=== PATIENT | male | born 1940 | race Caucasian/White ===

== ENCOUNTER 2016-09-28 18:01 | Emergency (ER) | payer MEDICARE, OTHER ==
[2016-09-28] MEDS ORDERED: Sodium Chloride 0.9% 1000 ML 1,000 ML IV SCH (18:45)
[2016-09-28] MEDS ORDERED: Hydromorphone 1 mg/ml Ampule IV ONE (18:45)
[2016-09-28 18:52] LABS: BASOPHIL % 0.2 % (0.0-0.4); Eosinophil % 0.9 % (0.00-5.0); Granulocytes % 75.3 % (36.0-66.0); Lymphocytes % 15.2 % (24.0-44.0); Mean Cell Volume 83.8 fl (78-100); Mean Corpuscular Hemoglobin 28.5 pg (26-32); Mean Platelet Volume 10.4 fl (6-9.5); Monocytes % 8.4 % (0.0-12.0); Platelet Count 316 K/mm3 (150-450); Red Cell Distribution Width 14.9 % (11.5-14.0); White Blood Count 13.8 K/mm3 (4.0-10.5)
[2016-09-28] MEDS ORDERED: Sodium Chloride 0.9% 1000 ML 1,000 ML ONE (18:52)
[2016-09-28] MEDS ORDERED: Hydromorphone 1 mg/ml Ampule ONE (18:52)
[2016-09-28 18:59] LABS: ALKALINE PHOSPHATASE 59 U/L (46-116); ANION GAP 13.7 MEQ/L (5-15); BLOOD UREA NITROGEN 16 mg/dL (9-20); CHLORIDE 102 mEq/L (98-107); Carbon Dioxide 29.8 mEq/L (21-32); Glucose 101 MG/DL (70-110); LIPASE 240 U/L (73-393); Potassium 4.3 mEq/L (3.5-5.1); SGOT/AST 36 U/L (15-37); SGPT/ALT 57 U/L (12-78); SODIUM 141 mEq/L (136-145); Total Protein 7.3 gm/dL (6.4-8.2)
--- NOTE | 2016-09-28 19:14 | ERPHSYRPT ---
- History of Present Illness Time Seen by Provider: 09/28/16 18:34 Historian: patient, family () Patient Subjective Stated Complaint: PT STATES HE BEGAN HAVING LEFT SIDE PAIN THIS AM STATES PAIN HAS ONLY GOTTEN WORSE DENIES NAUSEA PT STATES PAIN IS WORSE WHEN HE TAKES A DEEP BREATH DENIES ANY INJURY TO THE LEFT SIDE. PT DENIES ANY PROBLEMS WITH URINATION Triage Nursing Assessment: PT ALERT WARM AND DRY RESP EASY NON LABORED PAIN ON PALPATION TO LEFT SIDE NO BRUSING OR SWELLING NOTED Physician History: CC: left abd pain HX: 76 y/o patient of Dr Srivastava with gradually increased pain thru out the day. The pain is in the left side of his abdomen, worse with touch, position change, movement, riding in car. No chest pain. No injury. No rash. No shortness or breath nor cough. He had prior diverticular disease. He reports normal urination and normal BM's. No hx of similar pain in the past. He has hx of chol and HTN. Allergies/Adverse Reactions: No Known Drug Allergies Allergy (Unverified 12/15/12 06:43) Home Medications: Amlodipine Besylate 5 mg PO 09/28/16 [History] Benazepril/Hydrochlorothiazide [Benazepril-Hctz 20-12.5 mg Tab] 09/28/16 [ History] Metoprolol Succinate 09/28/16 [History] Simvastatin 20 mg PO DAILY 09/28/16 [History] Hx Tetanus, Diphtheria Vaccination/Date Given: Yes Hx Influenza Vaccination/Date Given: No Hx Pneumococcal Vaccination/Date Given: No Immunizations Up to Date: Yes - Review of Systems Constitutional: No Fever, No Chills Eyes: No Symptoms Ears, Nose, & Throat: No Symptoms Respiratory: No Cough, No Dyspnea Cardiac: No Chest Pain Abdominal/Gastrointestinal: Abdominal Pain, No Nausea, No Vomiting, No Diarrhea Genitourinary Symptoms: No Dysuria, No Hematuria, No Flank Pain Musculoskeletal: No Back Pain, No Neck Pain Skin: No Rash Neurological: No Focal Weakness, No Headache, No Parasthesia All Other Systems: Reviewed and Negative - Past Medical History Pertinent Past Medical History: Yes Neurological History: No Pertinent History ENT History: No Pertinent History Cardiac History: High Cholesterol, Hypertension Respiratory History: No Pertinent History Endocrine Medical History: No Pertinent History Musculoskeletal History: Arthritis GI Medical History: No Pertinent History History: No Pertinent History Psycho-Social History: No Pertinent History Male Reproductive Disorders: No Pertinent History Other Medical History: HTN,CHOLESTEROL - Past Surgical History Past Surgical History: No - Social History Smoking Status: Former smoker Exposure to second hand smoke: No Drug Use: none Patient Lives Alone: No ( here with ) - Nursing Vital Signs Nursing Vital Signs: Initial Vital Signs Temperature 98.0 F Temperature Source Oral Pulse Rate 52 Respiratory Rate 16 Blood Pressure [Right Arm] 140/60 Pain Intensity 2 - Physical Exam General Appearance: alert, other (pleasant man) Eye Exam: PERRL/EOMI Ears, Nose, Throat Exam: normal ENT inspection, moist mucous membranes Neck Exam: normal inspection, non-tender, supple Respiratory Exam: normal breath sounds Cardiovascular Exam: regular rate/rhythm Gastrointestinal/Abdomen Exam: soft, tenderness (left lateral upper abdomen, sensitive to touch and palpation. No rash. No mass.) Male Genitalia Exam: normal genitalia, No testicular tenderness Back Exam: normal inspection, normal range of motion Extremity Exam: normal inspection, normal range of motion Neurologic Exam: alert, oriented x 3, cooperative, sensation nml, No motor deficits Skin Exam: warm, dry, No rash SpO2 Interpretation: normal SpO2: 96 Oxygen Delivery: Room Air - Course Nursing assessment & vital signs reviewed: Yes EKG Interpreted by Me: RATE (53), Sinus Mathew, NORMAL AXIS, NORMAL INTERVALS ( QTc 411), NORMAL QRS, NORMAL ST-T - CT Exams abd/pelvis CT Interpretation: Tele-radiologist Report (Difuse scattered olonic diverticulosis w/ mild diverticulitis descending colon but no complications. fatty liver, renal cyst, enlarged prostate, fatty inguinal hernias, spondyloysis with mild listhesis) Ordered Tests: Active Orders 24 hr Category Date Time Status Clean Catch Urine Specimen STAT Care 09/28/16 18:45 Active EKG-ER Only STAT Care 09/28/16 18:45 Active IV Insertion STAT Care 09/28/16 18:45 Active ABDOMEN AND PELVIS W/0 CONTRAS [CT] Stat Exams 09/28/16 18:45 Taken CBC W DIFF Stat Lab 09/28/16 18:10 Completed CMP Stat Lab 09/28/16 18:10 Completed LIPASE Stat Lab 09/28/16 18:10 Completed UA W/RFX UR CULTURE Stat Lab 09/28/16 18:45 Ordered Medication Summary Generic Name Dose Route Start Last Admin Trade Name Db PRN Reason Stop Dose Admin Sodium Chloride 1,000 mls @ 50 mls/hr 09/28/16 18:45 09/28/16 18:53 Sodium Chloride 0.9% 1000 Ml IV 10/28/16 18:44 50 mls/hr .Q20H MIKI Administration Discontinued Medications Generic Name Dose Route Start Last Admin Trade Name Db PRN Reason Stop Dose Admin Hydromorphone HCl 1 mg 09/28/16 18:45 09/28/16 18:52 Hydromorphone 1 Mg/Ml Ampule IV 09/28/16 18:46 1 mg STAT ONE Administration Hydromorphone HCl Confirm 09/28/16 18:52 Hydromorphone 1 Mg/Ml Ampule Administered 09/28/16 18:53 Dose 1 mg .ROUTE .[employer]-MED ONE Lab/Rad Data: Laboratory Result Diagrams 09/28/16 18:10 09/28/16 18:10 Laboratory Results 09/28/16 09/28/16 Range/Units 18:10 18:10 WBC 13.8 H (4.0-10.5) K/mm3 RBC 5.20 (4.1-5.6) M/mm3 Hgb 14.8 (12.5-18.0) gm/dl Hct 43.6 (42-50) % MCV 83.8 (78-100) fl MCH 28.5 (26-32) pg MCHC 33.9 (32-36) g/dl RDW 14.9 H (11.5-14.0) % Plt Count 316 (150-450) K/mm3 MPV 10.4 H (6-9.5) fl Gran % 75.3 H (36.0-66.0) % Lymphocytes % 15.2 L (24.0-44.0) % Monocytes % 8.4 (0.0-12.0) % Eosinophils % 0.9 (0.00-5.0) % Basophils % 0.2 (0.0-0.4) % Basophils # 0.03 (0-0.4) Sodium 141 (136-145) mEq/L Potassium 4.3 (3.5-5.1) mEq/L Chloride 102 (98-107) mEq/L Carbon Dioxide 29.8 (21-32) mEq/L Anion Gap 13.7 (5-15) MEQ/L BUN 16 (9-20) mg/dL Creatinine 1.16 (0.55-1.30) mg/dl Estimated GFR > 60 ML/MIN Glucose 101 (70-110) MG/DL Calcium 9.3 (8.5-10.1) mg/dL Total Bilirubin 0.60 (0.2-1.0) mg/dL AST 36 (15-37) U/L ALT 57 (12-78) U/L Alkaline Phosphatase 59 (46-116) U/L Serum Total Protein 7.3 (6.4-8.2) gm/dL Albumin 4.0 (3.4-5.0) g/dL Lipase 240 (73-393) U/L - Progress Progress Note: 09/28/16 19:14 Likely neuropathic pain from Zoster. Will get CT to evaluate for underlying diverticular disease. This does not appear to be chest related. 09/28/16 20:04 Will treat for diverticulitis. Advised call Dr Kern for any sign of rash. He had prior allergy to sulfa so will use augmentin. Counseled pt/family regarding: lab results, diagnosis, need for follow-up, rad results - Departure Time of Disposition: 20:05 Departure Disposition: Home Clinical Impression: Left lateral abdominal pain Diverticulitis large intestine Qualifiers: Diverticulitis bleeding: without bleeding Diverticulitis complication: without perforation or abscess Qualified Code(s): K57.32 - Diverticulitis of large intestine without perforation or abscess without bleeding Condition: Stable Critical Care Time: No Referrals: SARAHI SRIVASTAVA [Primary Care Provider] - Instructions: Abdominal Pain-Adult, Diverticulitis Additional Instructions: ABDOMINAL PAIN 1. There are several different causes for abdominal pain, some of which may not be able to be identified on initial examination. 2. The important thing to remember is that bodily functions can change in a short period of time. If you notice any of the following symptoms, return to the emergency department or consult your doctor immediately: A. Worsening pain or no improvement in the next 12 hours. B. Increasing, severe abdominal pain C. Blood in stool D. Black stools E. Persistent vomiting F. Fever or chills or other symptoms Rx augmentin twice a day. Rx norco if needed for pain. Follow up with Dr Srivastava in 2 days. Return for passing blood, worsened or changed pain, fever, concerns. Prescriptions: Hydrocodone Bit/Acetaminophen [[place] 5-325 Tablet] 1 each PO Q6H PRN PRN #15 tablet PRN Reason: Pain Amox Tr/Potass Clav. 875 mg [Augmentin 875-125 Tablet] 1 each PO BID #18 tablet
[2016-09-28] MEDS ORDERED: NORCO 5/325 MG PO ONE (20:07)
[2016-09-28] MEDS ORDERED: Augmentin 875-125 Tablet PO ONE ×2 (20:07→20:08)
[2016-09-28] MEDS ORDERED: Augmentin 875-125 Tablet ONE (20:17)
[2016-09-28 20:19] LABS: ADD URINE CULTURE? YES (NO); Bacteria MODERATE /HPF (NEGATIVE); Bilirubin NEGATIVE (NEGATIVE); Blood 250 Ery/ul (0-5); COMPLETE URINE MICROSCOPIC? YES; Collection Type VOID; Epithelial Cells MODERATE /HPF (FEW); Glucose NEGATIVE (NEGATIVE); Leukocyte Esterase 1+ (NEGATIVE); Mucus MODERATE /HPF (NEGATIVE); WBC 15-25 /HPF (0-5)
[2016-09-28] MEDS ORDERED: NORCO 5/325 MG ONE (20:26)
[2016-09-28 20:31] VITALS: BP 135/58; PULSE 56; O2SAT 95
--- NOTE | 2016-09-29 09:28 | XRAY ---
Indication: Left abdominal pain. History of diverticulitis. Multiple contiguous axial images obtained through the abdomen and pelvis without contrast as ordered. Comparison: None Lung bases demonstrates minimal bibasilar atelectasis/scarring. Heart is not enlarged. Noncontrasted stomach and bowel loops appear nonobstructed. Mild diffuse scattered colonic diverticulosis. Descending colon demonstrates mild pericolonic stranding favoring diverticulitis with tiny fluid along the colic gutter. No walled off fluid collection or free air. Normal appendix. Diffuse fatty liver, calcified hepatic/splenic calcified granulomas, 2.4 cm right mid renal cyst, and enlarged prostate gland. Remaining gallbladder, pancreas, adrenal glands, kidneys, ureters, and bladder appear unremarkable for noncontrast exam. Heavy aortoiliac calcifications without AAA. Osseous structures demonstrates moderate degenerative spondylosis. Bilateral L5 spondylolysis with 6 mm spondylolisthesis. Small fatty bilateral inguinal hernias. Impression: 1. Colonic diverticulosis. Mild diverticulitis involving the descending colon. 2. Incidental fatty liver, right renal cyst, enlarged prostate gland, bilateral fatty inguinal hernias, and evidence for old granulomatous disease. 3. Bilateral L5 spondylolysis with grade 1 spondylolisthesis. CTDI 27.67
== END 2016-09-28 20:36 | disposition home or self-care (01) ==
LOC: ED 18:01
DX: K57.32 Diverticulitis of large intestine without perforation or abscess without bleeding (principal); R10.9 Unspecified abdominal pain; E78.00 Pure hypercholesterolemia, unspecified; I10 Essential (primary) hypertension; Z79.899 Other long term (current) drug therapy
CPT/HCPCS: 36000; 36415; 74176; 80053; 81000; 83690; 85025; 87077; 87086; 87186; 93005; 96360; 96361; 96374; 99284; J1170; A9270-GY

== ENCOUNTER 2016-12-28 03:19 | Emergency (ER) | payer MEDICARE, OTHER ==
[2016-12-28] MEDS ORDERED: MORPHINE SULFATE 4 MG INJ IV ONE (03:47)
--- NOTE | 2016-12-28 03:47 | ERPHSYRPT ---
- History of Present Illness Time Seen by Provider: 12/28/16 03:39 Source: patient Exam Limitations: no limitations Physician History: The patient is a 76-year-old male with family complaining that he isn't able to urinate since 6 PM yesterday. The patient had a cardiac catheterization performed yesterday. Before he left the hospital he was not able to urinate. They performed a straight catheter to relieve the urine retention. He states he put out more than 1 L of of urine. He was able to urinate a small amount afterwards without the catheter. Since being at home, he is been able to urinate only small amounts with discharge of blood clots. The patient is on Plavix. 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 His family states that one carotid artery is 100% occluded amiodarone is 98% occluded. He has no known prostate issues. His past medical history is significant for hypertension, high cholesterol, coronary artery disease, and peripheral vascular disease. He also has a history of diverticulitis. Timing/Duration: yesterday Activites at Onset: none Quality: fullness, pressure, sharpness Onset Location: suprapubic Pain Radiation: none Severity of Pain-Max: severe Severity of Pain-Current: severe Modifying Factors: Improves With: urinating Associated Symptoms: other (urinary retention) Prior abdominal problems: recent trauma (straight cath ) Sexual intercourse history: non-contributory Allergies/Adverse Reactions: No Known Drug Allergies Allergy (Unverified 12/28/16 03:59) Home Medications: Amlodipine Besylate 5 mg PO 09/28/16 [History] Benazepril/Hydrochlorothiazide [Benazepril-Hctz 20-12.5 mg Tab] 09/28/16 [ History] Metoprolol Succinate 09/28/16 [History] Simvastatin 20 mg PO DAILY 09/28/16 [History] Hx Tetanus, Diphtheria Vaccination/Date Given: Yes Hx Influenza Vaccination/Date Given: No Hx Pneumococcal Vaccination/Date Given: No - Past Medical History Pertinent Past Medical History: Yes Neurological History: No Pertinent History ENT History: No Pertinent History Cardiac History: High Cholesterol, Hypertension Respiratory History: No Pertinent History Endocrine Medical History: No Pertinent History Musculoskeletal History: Arthritis GI Medical History: No Pertinent History History: No Pertinent History Psycho-Social History: No Pertinent History Male Reproductive Disorders: No Pertinent History Other Medical History: HTN,CHOLESTEROL - Past Surgical History Past Surgical History: No - Social History Smoking Status: Former smoker Exposure to second hand smoke: No Drug Use: none Patient Lives Alone: No ( here with ) - Review of Systems Constitutional: No Fever, No Chills Eyes: No Symptoms Ears, Nose, & Throat: No Symptoms Respiratory: No Cough, No Dyspnea Cardiac: No Chest Pain, No Edema, No Syncope Abdominal/Gastrointestinal: Abdominal Pain Genitourinary Symptoms: Urinary Retention Musculoskeletal: No Back Pain, No Neck Pain Skin: No Rash Neurological: No Dizziness, No Focal Weakness, No Sensory Changes Psychological: No Symptoms Endocrine: No Symptoms Hematologic/Lymphatic: No Symptoms Immunological/Allergic: No Symptoms All Other Systems: Reviewed and Negative - Nursing Vital Signs Nursing Vital Signs: Initial Vital Signs Temperature 98.1 F 12/28/16 03:25 Pulse Rate 62 12/28/16 03:25 Respiratory Rate 18 12/28/16 03:25 Blood Pressure 182/62 12/28/16 03:25 O2 Sat by Pulse Oximetry 96 12/28/16 03:25 Pain Scale Pain Intensity 0 - Physical Exam General Appearance: severe distress (during bladder spasm.) Eye Exam: PERRL/EOMI Ears, Nose, Throat Exam: pharynx normal, moist mucous membranes Neck Exam: normal inspection, supple Respiratory Exam: normal breath sounds Cardiovascular Exam: regular rate/rhythm (I much is out now), No edema Gastrointestinal/Abdomen Exam: tenderness, distention, other (bladder can be palpated in lower abd.) Rectal Exam: not done Male Genital Exam: normal genitalia Back Exam: normal inspection, No CVA tenderness Extremity Exam: normal inspection, normal range of motion, No pedal edema Neurologic Exam: alert, oriented x 3, cooperative, sensation nml, No motor deficits Skin Exam: normal color, warm, dry, No rash SpO2 Interpretation: normal Ordered Tests: Active Orders 24 hr Category Date Time Status Catheter-[place] STAT Care 12/28/16 03:51 Active IV Insertion STAT Care 12/28/16 03:51 Active UA W/ MICROSCOPIC Stat Lab 12/28/16 04:00 Completed Medication Summary Discontinued Medications Generic Name Dose Route Start Last Admin Trade Name Freq PRN Reason Stop Dose Admin Morphine Sulfate 4 mg 12/28/16 03:47 12/28/16 03:55 Morphine Sulfate 4 Mg Inj IV 12/28/16 03:48 4 mg STAT ONE Administration Morphine Sulfate Confirm 12/28/16 03:54 Morphine Sulfate 4 Mg Inj Administered 12/28/16 03:55 Dose 4 mg .ROUTE .[employer]-MED ONE Ondansetron HCl 4 mg 12/28/16 03:48 12/28/16 03:56 Zofran 4 Mg/2 Ml Vial IV 12/28/16 03:49 4 mg STAT ONE Administration Ondansetron HCl Confirm 12/28/16 03:53 Zofran 4 Mg/2 Ml Vial Administered 12/28/16 03:54 Dose 4 mg .ROUTE .STK-MED ONE Tamsulosin HCl 0.4 mg 12/28/16 03:48 12/28/16 03:56 Flomax 0.4 Mg PO 12/28/16 03:49 0.4 mg DAILY STA Administration Tamsulosin HCl Confirm 12/28/16 03:53 Flomax 0.4 Mg Administered 12/28/16 03:54 Dose 0.4 mg .ROUTE .STK-MED ONE Lab/Rad Data: Laboratory Results 12/28/16 Range/Units 04:00 Ur Collection Type CLEAN CATCH Urine Color RED (YELLOW) Urine Appearance SLIGHTLY CLOUDY (CLEAR) Urine pH 7.0 (5-6) Ur Specific [place] 1.010 (1.005-1.025) Urine Protein 100 (Negative) Urine Ketones NEGATIVE (NEGATIVE) Urine Blood 250 (0-5) Dereck/ul Urine Nitrite NEGATIVE (NEGATIVE) Urine Bilirubin NEGATIVE (NEGATIVE) Urine Urobilinogen NORMAL (0-1) mg/dL Ur Leukocyte Esterase NEGATIVE (NEGATIVE) Urine Microscopic RBC >100 (0-2) /HPF Ur Epithelial Cells FEW (FEW) /HPF Urine Bacteria RARE (NEGATIVE) /HPF Urine Culture Reflexed NO (NO) Urine Glucose NEGATIVE (NEGATIVE) mg/dL Specimen Received 12/28/16:0400 - Progress Progress: improved Progress Note: 12/28/16 03:59 A [place] catheter was placed but it was quickly occluded with small blood clots. Some mild irrigation of the [place] catheter produced good results. The patient is feeling much better now. Counseled pt/family regarding: lab results, diagnosis, need for follow-up - Departure Time of Disposition: 04:00 Departure Disposition: Home Clinical Impression: Urinary retention Condition: Stable Critical Care Time: No Referrals: SARAHI DREW [Primary Care Provider] - Additional Instructions: You have urinary retention. A [place] catheter was placed in the ER and had to be irrigated to relieve the clots that were obstructing the catheter. Leave the catheter in place until Friday. You were given morphine 4 mg and zofran 4 mg by IV and flomax 0.4 mg by mouth in the ER. Follow-up with his family doctor to have the [place] catheter removed on Friday.
[2016-12-28] MEDS ORDERED: Zofran 4 MG/2 ML VIAL IV ONE (03:48)
[2016-12-28] MEDS ORDERED: Flomax 0.4 MG PO STA (03:48)
[2016-12-28] MEDS ORDERED: Zofran 4 MG/2 ML VIAL ONE (03:53)
[2016-12-28] MEDS ORDERED: Flomax 0.4 MG ONE (03:53)
[2016-12-28] MEDS ORDERED: MORPHINE SULFATE 4 MG INJ ONE (03:54)
[2016-12-28 04:14] VITALS: PULSE 56; O2SAT 97
[2016-12-28 04:19] LABS: ADD URINE CULTURE? NO (NO); Bilirubin NEGATIVE (NEGATIVE); Blood 250 Ery/ul (0-5); COMPLETE URINE MICROSCOPIC? YES; Collection Type CLEAN CATCH; Glucose NEGATIVE (NEGATIVE); Leukocyte Esterase NEGATIVE (NEGATIVE)
[2016-12-28 04:20] LABS: Bacteria RARE /HPF (NEGATIVE); Epithelial Cells FEW /HPF (FEW)
[2016-12-28 04:59] VITALS: BP 152/69
== END 2016-12-28 05:02 | disposition home or self-care (01) ==
LOC: ED 03:19
DX: R33.9 Retention of urine, unspecified (principal); I10 Essential (primary) hypertension; E78.00 Pure hypercholesterolemia, unspecified; I25.10 Atherosclerotic heart disease of native coronary artery without angina pectoris; I73.9 Peripheral vascular disease, unspecified; Z79.899 Other long term (current) drug therapy
CPT/HCPCS: 36000; 51702; 81000; 96374; 96375; 99283; 99284; J2270; J2405; A9270-GY

== ENCOUNTER 2021-07-18 21:18 | Observation (INO) | payer MEDICARE ==
[2021-07-18 22:08] LABS: Absolute Neutrophil Ct (ANC) 7.77 (1.4-6.9); Basophil (Absolute #) 0.05 (0-0.4); Eosinophil % 3.2 % (0.00-5.0); Eosinophil (Absolute #) 0.32 (0-0.5); Hematocrit 36.5 % (42-50); Hemoglobin 11.9 gm/dl (12.5-18.0); Lymphocyte (Absolute #) 1.15 (1.0-4.6); Lymphocytes % 11.6 % (24.0-44.0); Mean Cell Volume 88.6 fl (78-100); Mean Corpuscular Hemoglobin 28.9 pg (26-32); Mean Corpuscular Hgb Concent. 32.6 g/dl (32-36); Mean Platelet Volume 9.4 fl (7.5-11.0); Monocyte (Absolute #) 0.64 (0.0-1.3); Monocytes % 6.4 % (0.0-12.0); Neutrophil % 78.3 % (36.0-66.0); Platelet Count 381 K/mm3 (150-450); Red Blood Count 4.12 M/mm3 (4.1-5.6); Red Cell Distribution Width 15.9 % (11.5-14.0); White Blood Count 9.9 K/mm3 (4.0-10.5)
--- NOTE | 2021-07-18 22:12 | ERPHSYRPT ---
- History of Present Illness Historian: patient, other (Daughter) Exam Limitations: no limitations Patient Subjective Stated Complaint: Pt states, "Every time I try and eat it feels like it gets stuff in my chest. I keep having to spit it up." Triage Nursing Assessment: Pt alert and oriented x3, pt ambulatory to cot by self, pt c/o food "stuck in chest after every time he eats." pt denies stomach pain, fever, or diarrhea. pt states "I have to spit up the food I eat cause it feels like it never makes it down to my stomach." Physician History: 80 yo wm w food bolus stuck in esophagus since eating steak/eggs at 10:00AM today. Pt unable to hold down solids/liquids. Daughter states that pt has been having dysphagia for several months. He denies chest pain/dyspnea/diarrhea/fever/melena/hematochezia. Timing/Duration: today (10:00AM) Activities at Onset: other (Breakfast) Quality: fullness Abdominal Pain Onset Location: other (No abdominal pain) Modifying Factors: Improves With: eating Associated Symptoms: loss of appetite, nausea, No back, No chest pain, No diaphoresis, No diarrhea, No fever/chills, No fatigue, No headache, No heartburn, No neck pain, No rash, No shortness of breath, No syncope, No vomiting, No weakness Previous symptoms: same symptoms as today Allergies/Adverse Reactions: Penicillins Allergy (Verified 07/18/21 21:29) Home Medications: Amlodipine Besylate 5 mg PO DAILY 09/28/16 [History] Simvastatin 40 mg PO HS 09/28/16 [History] Aspirin 81 tab PO HS 12/28/16 [History] Clopidogrel Bisulfate 75 mg [PLAVIX 75 MG Tablet] 1 tab DAILY 12/28/16 [History] Levothyroxine Sodium 75 Mcg [Synthroid 75 Mcg] 75 mcg PO DAILY 07/18/21 [History] Potassium Chloride 30 meq PO DAILY 07/18/21 [History] Allopurinol 100 mg [Zyloprim 100 mg] 100 mg PO BID 07/19/21 [History] Ibuprofen 200 mg [Motrin 200 mg] 400 mg PO BID 07/19/21 [History] Metoprolol Tartrate 50 mg [Lopressor 50 MG] 50 mg PO BID 07/19/21 [History] Tamsulosin HCl 0.4 mg [Flomax 0.4 MG] 0.4 mg PO BID 07/19/21 [History] Hx Tetanus, Diphtheria Vaccination/Date Given: Yes Hx Influenza Vaccination/Date Given: No Hx Pneumococcal Vaccination/Date Given: No Immunizations Up to Date: Yes Travel Risk - International Travel Have you traveled outside of the country in past 3 weeks: No - Coronavirus Screening Are you exhibiting any of the following symptoms?: No Close contact with a COVID-19 positive Pt in past 14-21 Days: No - Vaccine Status Have you recieved a Covid-19 vaccination: Yes 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: [employer] - Review of Systems Constitutional: No Symptoms Eyes: No Symptoms Ears, Nose, & Throat: No Symptoms, Throat Pain Respiratory: No Symptoms Cardiac: No Symptoms Abdominal/Gastrointestinal: No Symptoms Genitourinary Symptoms: No Symptoms Musculoskeletal: No Symptoms Skin: No Symptoms Neurological: No Symptoms Psychological: No Symptoms Endocrine: No Symptoms Hematologic/Lymphatic: No Symptoms Immunological/Allergic: No Symptoms - Past Medical History Pertinent Past Medical History: Yes Neurological History: No Pertinent History ENT History: No Pertinent History Cardiac History: High Cholesterol, Hypertension Respiratory History: No Pertinent History Endocrine Medical History: No Pertinent History Musculoskeletal History: Arthritis GI Medical History: No Pertinent History History: No Pertinent History, Bladder Cancer Psycho-Social History: No Pertinent History Male Reproductive Disorders: No Pertinent History Other Medical History: HTN,CHOLESTEROL - Past Surgical History Past Surgical History: Yes Other Surgical History: carotid artery - Social History Smoking Status: Former smoker Exposure to second hand smoke: No Drug Use: none Patient Lives Alone: No ( here with ) Significant Family History: no pertinent family hx - Nursing Vital Signs Nursing Vital Signs: Initial Vital Signs Temperature 97.2 F 07/18/21 21:31 Pulse Rate 74 07/18/21 21:31 Respiratory Rate 16 07/18/21 21:31 Blood Pressure 162/46 07/18/21 21:31 O2 Sat by Pulse Oximetry 99 07/18/21 21:31 Pain Scale Pain Intensity 0 Hypertensive - Physical Exam General Appearance: no apparent distress Eye Exam: PERRL/EOMI, eyes nml inspection Ears, Nose, Throat Exam: normal ENT inspection, TMs normal Neck Exam: normal inspection, non-tender, supple, full range of motion Respiratory Exam: normal breath sounds, lungs clear, airway intact Cardiovascular Exam: regular rate/rhythm, normal heart sounds, normal peripheral pulses, No murmur Gastrointestinal/Abdomen Exam: soft, normal bowel sounds Back Exam: normal inspection, normal range of motion Extremity Exam: normal inspection, normal range of motion Neurologic Exam: alert, oriented x 3, cooperative, circulation librarian II-XII nml as tested, normal mood/affect, nml cerebellar function, nml station & gait, sensation nml Skin Exam: normal color, warm, dry Lymphatic Exam: No inguinal node tender (L) SpO2 Interpretation: normal SpO2: 99 O2 Delivery: Room Air - Course Nursing assessment & vital signs reviewed: Yes EKG Interpreted by Me: RATE (NSR/R66/Normal QT-QTc/No acute ST segment changes) Ordered Tests: Active Orders 24 hr Category Date Time Status EKG-ER Only STAT Care 07/18/21 22:03 Completed CBC W DIFF Stat Lab 07/18/21 21:50 Completed CMP Stat Lab 07/18/21 21:50 Completed PROTIME WITH INR Stat Lab 07/18/21 22:14 Completed PTT Stat Lab 07/18/21 22:14 Completed TROPONIN Q3H Lab 07/18/21 21:50 Completed Medication Summary Generic Name Dose Route Start Last Admin Trade Name Freq PRN Reason Stop Dose Admin Allopurinol 100 mg 07/19/21 01:30 07/19/21 01:22 Allopurinol 100 Mg Tablet PO 08/18/21 01:29 100 mg BID MIKI Administration Lactated Ringer's 1,000 mls @ 80 mls/hr 07/18/21 23:00 07/18/21 22:42 Lactated Ringers IV 08/17/21 22:59 80 mls/hr .[id number] MIKI Administration Dextrose/Lactated Ringer's 1,000 mls @ 75 mls/hr 07/19/21 00:30 07/19/21 01:29 Dextrose 5%-Lr Iv Solution 1000 Ml IV 08/18/21 00:29 75 mls/hr .[id number] MIKI Administration Metoprolol Tartrate 50 mg 07/19/21 10:00 07/19/21 01:27 Metoprolol Tartrate 50 Mg Tablet PO 08/18/21 09:59 50 mg BID MIKI Administration Ondansetron HCl 4 mg 07/19/21 00:01 Ondansetron Hcl 4 Mg/2 Ml Vial IV 08/18/21 00:00 Q6H PRN PRN NAUSEA/VOMITING Simvastatin 40 mg 07/19/21 01:30 07/19/21 01:22 Simvastatin 20 Mg Tablet PO 08/18/21 01:29 40 mg HS MIKI Administration Tamsulosin HCl 0.4 mg 07/19/21 01:30 07/19/21 01:48 Tamsulosin Hcl 0.4 Mg Cap PO 08/18/21 01:29 0.4 mg BID MIKI Administration Discontinued Medications Generic Name Dose Route Start Last Admin Trade Name Freq PRN Reason Stop Dose Admin Lactated Ringer's Confirm 07/18/21 22:40 Lactated Ringers Administered 07/18/21 22:41 Dose 1,000 mls @ ud IV .STK-MED ONE Lidocaine HCl Confirm 07/18/21 23:08 Lidocaine - Mpf 2% 5 Ml Vial Administered 07/18/21 23:09 Dose 5 ml .ROUTE .STK-MED ONE Metoprolol Succinate 50 mg 07/19/21 01:30 Metoprolol Succinate 50 Mg Tablet.Sa PO 08/18/21 01:29 BID MIKI Propofol Confirm 07/18/21 23:09 Propofol 10 Mg/Ml 20ml Vial Administered 07/18/21 23:10 Dose 200 mg IV .STK-MED ONE Lab/Rad Data: Laboratory Result Diagrams 07/18/21 21:50 07/18/21 21:50 Laboratory Results 07/18/21 07/18/21 07/18/21 Range/Units 22:30 22:14 21:50 WBC (4.0-10.5) K/mm3 RBC (4.1-5.6) M/mm3 Hgb (12.5-18.0) gm/dl Hct (42-50) % MCV (78-100) fl MCH (26-32) pg MCHC (32-36) g/dl RDW (11.5-14.0) % Plt Count (150-450) K/mm3 MPV (7.5-11.0) fl Gran % (36.0-66.0) % Eos # (Auto) (0-0.5) Absolute Lymphs (auto) (1.0-4.6) Absolute Monos (auto) (0.0-1.3) Lymphocytes % (24.0-44.0) % Monocytes % (0.0-12.0) % Eosinophils % (0.00-5.0) % Basophils % (0.0-0.4) % Absolute Granulocytes (1.4-6.9) Basophils # (0-0.4) PT 13.6 H (9.4-12.5) SECONDS INR 1.15 (0.8-3.0) APTT 43.4 H (25.1-36.5) SECONDS Sodium (137-145) mmol/L Potassium (3.5-5.1) mmol/L Chloride (98-107) mmol/L Carbon Dioxide (22-30) mmol/L Anion Gap (5-15) MEQ/L BUN (9-20) mg/dL Creatinine (0.66-1.25) mg/dL Estimated GFR ML/MIN Glucose (74-106) mg/dL Calcium (8.4-10.2) mg/dL Total Bilirubin (0.2-1.3) mg/dL AST (17-59) U/L ALT (0-50) U/L Alkaline Phosphatase (38-126) U/L Troponin I < 0.012 (0.000-0.034) ng/mL Serum Total Protein (6.3-8.2) g/dL Albumin (3.5-5.0) g/dL Influenza Type A Ag NEGATIVE (NEGATIVE) Influenza Type B Ag NEGATIVE (NEGATIVE) RSV (PCR) NEGATIVE (Negative) SARS-CoV-2 (PCR) NEGATIVE (NEGATIVE) 07/18/21 07/18/21 Range/Units 21:50 21:50 WBC 9.9 (4.0-10.5) K/mm3 RBC 4.12 (4.1-5.6) M/mm3 Hgb 11.9 L (12.5-18.0) gm/dl Hct 36.5 L (42-50) % MCV 88.6 (78-100) fl MCH 28.9 (26-32) pg MCHC 32.6 (32-36) g/dl RDW 15.9 H (11.5-14.0) % Plt Count 381 (150-450) K/mm3 MPV 9.4 (7.5-11.0) fl Gran % 78.3 H (36.0-66.0) % Eos # (Auto) 0.32 (0-0.5) Absolute Lymphs (auto) 1.15 (1.0-4.6) Absolute Monos (auto) 0.64 (0.0-1.3) Lymphocytes % 11.6 L (24.0-44.0) % Monocytes % 6.4 (0.0-12.0) % Eosinophils % 3.2 (0.00-5.0) % Basophils % 0.5 (0.0-0.4) % Absolute Granulocytes 7.77 H (1.4-6.9) Basophils # 0.05 (0-0.4) PT (9.4-12.5) SECONDS INR (0.8-3.0) APTT (25.1-36.5) SECONDS Sodium 144 (137-145) mmol/L Potassium 3.9 (3.5-5.1) mmol/L Chloride 115 H (98-107) mmol/L Carbon Dioxide 14 L* (22-30) mmol/L Anion Gap 18.9 H (5-15) MEQ/L BUN 33 H (9-20) mg/dL Creatinine 2.11 H (0.66-1.25) mg/dL Estimated GFR 32.3 ML/MIN Glucose 99 (74-106) mg/dL Calcium 9.3 (8.4-10.2) mg/dL Total Bilirubin 0.50 (0.2-1.3) mg/dL AST 22 (17-59) U/L ALT 17 (0-50) U/L Alkaline Phosphatase 107 (38-126) U/L Troponin I (0.000-0.034) ng/mL Serum Total Protein 7.7 (6.3-8.2) g/dL Albumin 4.2 (3.5-5.0) g/dL Influenza Type A Ag (NEGATIVE) Influenza Type B Ag (NEGATIVE) RSV (PCR) (Negative) SARS-CoV-2 (PCR) (NEGATIVE) - Progress Progress Note: 07/18/21 22:15 Pt unable to swallow water-spits it all up Talked to Dr. Kim, will do EGD tonight 07/19/21 00:54 Pt taken to surgery for EGD 07/19/21 00:55 LR started in ER at 80ml/hr Counseled pt/family regarding: diagnosis, need for follow-up - Departure Departure Disposition: Release to OR/SDC Clinical Impression: Esophageal obstruction due to food impaction, Renal insufficiency Condition: Stable Critical Care Time: No
[2021-07-18 22:15] LABS: ALBUMIN 4.2 g/dL (3.5-5.0); ANION GAP 18.9 MEQ/L (5-15); BILIRUBIN,TOTAL 0.5 mg/dL (0.2-1.3); Calcium 9.3 mg/dL (8.4-10.2); Creatinine 1 2.11 mg/dL (0.66-1.25); EST GLOMERULAR FILTRATION RATE 32.3 ML/MIN; Potassium 3.9 mmol/L (3.5-5.1); Total Protein 7.7 g/dL (6.3-8.2)
[2021-07-18 22:28] LABS: INR 1.15 (0.8-3.0); PROTIME 13.6 SECONDS (9.4-12.5)
[2021-07-18 22:30] LABS: PTT 43.4 SECONDS (25.1-36.5)
[2021-07-18] MEDS ORDERED: Lactated Ringers 1,000 ML IV ONE (22:40)
[2021-07-18] MEDS ORDERED: Lactated Ringers 1,000 ML IV SCH (23:00)
[2021-07-18] MEDS ORDERED: Xylocaine-Mpf 2% 5 Ml Vial ONE (23:08)
[2021-07-18] MEDS ORDERED: DIPRIVAN 200 MG/20 ML IV ONE (23:09)
[2021-07-18 23:17] LABS: INFLUENZA A NEGATIVE (NEGATIVE); INFLUENZA B NEGATIVE (NEGATIVE); RESPIRATORY SYNCTIAL VIRUS NEGATIVE (Negative); SARS-CoV-2 Xpert Express NEGATIVE (NEGATIVE)
[2021-07-19] MEDS ORDERED: Zofran 4 MG/2 ML VIAL IVIM PRN (00:01)
[2021-07-19] MEDS ORDERED: Dextrose 5%-Lr IV Solution 1000 ML 1,000 ML IV SCH (00:30)
[2021-07-19] MEDS ORDERED: ZOCOR 20MG ONE (01:18)
[2021-07-19] MEDS ORDERED: Lopressor 50 MG ONE (01:18)
[2021-07-19] MEDS ORDERED: ZYLOPRIM 100 MG ONE (01:18)
[2021-07-19] MEDS ORDERED: Flomax 0.4 MG ONE (01:18)
[2021-07-19] MEDS ORDERED: Dextrose 5%-Lr IV Solution 1000 ML 1,000 ML IV ONE (01:19)
[2021-07-19] MEDS: ZYLOPRIM 100 MG PO SCH ×2 (01:22→09:45)
[2021-07-19] MEDS: Lopressor 50 MG PO SCH ×2 (01:27→09:45)
[2021-07-19] MEDS ORDERED: ZOCOR 20MG PO SCH (01:30)
[2021-07-19] MEDS ORDERED: Toprol Xl 50 MG PO SCH (01:30)
[2021-07-19] MEDS: Flomax 0.4 MG PO SCH ×2 (01:48→09:44)
[2021-07-19 05:10] LABS: Absolute Neutrophil Ct (ANC) 6.46 (1.4-6.9); Basophil (Absolute #) 0.03 (0-0.4); Eosinophil % 3.2 % (0.00-5.0); Eosinophil (Absolute #) 0.27 (0-0.5); Hematocrit 33.9 % (42-50); Lymphocyte (Absolute #) 1.07 (1.0-4.6); Lymphocytes % 12.8 % (24.0-44.0); Mean Cell Volume 89.2 fl (78-100); Mean Corpuscular Hemoglobin 28.9 pg (26-32); Mean Corpuscular Hgb Concent. 32.4 g/dl (32-36); Mean Platelet Volume 9.3 fl (7.5-11.0); Monocyte (Absolute #) 0.52 (0.0-1.3); Monocytes % 6.2 % (0.0-12.0); Neutrophil % 77.4 % (36.0-66.0); Platelet Count 341 K/mm3 (150-450); White Blood Count 8.4 K/mm3 (4.0-10.5)
[2021-07-19] MEDS ORDERED: TYLENOL 325 MG PO PRN (07:13)
[2021-07-19] MEDS ORDERED: FEVERALL 650 MG RC PRN (07:13)
[2021-07-19 07:56] VITALS: O2SAT 95
--- NOTE | 2021-07-19 08:53 | HP ---
ADMISSION DATE: 07/18/2021 ADMITTING DIAGNOSIS: 1. FOOD BOLUS IN THE ESOPHAGUS. HISTORY OF PRESENT ILLNESS: The patient is an 80 y/o patient of Dr. Srivastava who came to the Emergency Room complaining of having a food bolus stuck in the esophagus. Has been having difficulty swallowing and he was referred for surgical management. PAST MEDICAL HISTORY: His past medical history overall seems to be unremarkable. The patient has some coronary artery disease. He is on aspirin and Plavix. Denies diabetes. PAST SURGICAL HISTORY: Seems to be overall unremarkable. Never had an upper endoscopy, but he has experienced dysphagia for the last few months. PHYSICAL EXAMINATION: On exam, is alert and oriented. HEENT: Pupils are equal and normoactive. NECK: Supple. COR: Regular rhythm. ABDOMEN: Soft and nontender. EXTREMITIES: Within normal limits and no pedal edema. IMPRESSION: 1. A FOOD BOLUS IS STUCK IN THE ESOPHAGUS. PLAN: The plan is to proceed with an upper endoscopy and removal of the food bolus, possible dilatation.
--- NOTE | 2021-07-19 09:45 | OP ---
SURGERY DATE: 07/18/2021 SURGERY TIME: 2311 PREOPERATIVE DIAGNOSIS: 1. FOOD BOLUS IN THE ESOPHAGUS. POSTOPERATIVE DIAGNOSIS: 1. FOOD BOLUS IN THE ESOPHAGUS. PROCEDURE: 1. EGD with removal of the food bolus and biopsy and dilatation. SURGEON: Magan Kim M.D. ANESTHESIA: MAC. COMPLICATIONS: None. INDICATIONS: The patient came to the Emergency Room complaining of having difficulty swallowing, even his own saliva. He has been vomiting. He tried some water. The water came back up. So, he was referred for removal of the food bolus which was done without complications. DESCRIPTION OF PROCEDURE: The patient was taken to the endoscopy lab. Was given MAC anesthesia. The scope was introduced and advanced in the lower esophagus. Some food bolus residual was present. We were able to push it through with the scope without requiring any basket or tripod to removal that impacted bolus. After this was done, we noticed a stricture in the distal esophagus which allowed the passage of the scope, but seemed to be somehow snug at that level. Did not look like a malignancy, but a benign type of stricture. The scope was advanced into the stomach and then negotiated through the pyloric channel to the 1st and 2nd portion of the duodenum. Did not identify any ulcers. Biopsies were taken for H-pylori and then biopsy was also taken from the distal esophagus to rule out malignancy. Then, using an 18/20 balloon dilator, we dilated the distal esophagus up to 60 [place]ian of 20 mm. There was some oozing from the dilated area, but we felt that it was minimal. At this point, we withdrew the scope and the procedure was ended without complications. The patient tolerated this procedure well. Was taken back to the recovery area in overall stable condition.
[2021-07-19] MEDS ORDERED: NORVASC 5 MG PO SCH (10:00)
[2021-07-19] MEDS ORDERED: Klor Con 10 MEQ PO SCH (10:00)
[2021-07-19] MEDS ORDERED: PLAVIX 75 MG Tablet PO SCH (10:00)
[2021-07-19] MEDS ORDERED: MOTRIN 400 MG PO SCH (10:00)
[2021-07-19] MEDS ORDERED: NON-FORMULARY ITEM (Potassium Chloride [Potassium Chloride] 10 MEQ Tab.Er.Prt) PO SCH ×2 (10:00)
[2021-07-19] MEDS ORDERED: SYNTHROID 75 MCG PO SCH (10:00)
[2021-07-19 11:32] VITALS: BP 154/67; PULSE 51
[2021-07-19] MEDS ORDERED: ECOTRIN 81 MG PO SCH (22:00)
== END 2021-07-19 11:20 | disposition home or self-care (01) ==
LOC: ED 21:18 → MED SURG 23:45
PROVIDERS: ADMIT Surgery; ATTEND Surgery
DX: T18.128A Food in esophagus causing other injury, initial encounter (principal); I25.10 Atherosclerotic heart disease of native coronary artery without angina pectoris; I10 Essential (primary) hypertension; E78.00 Pure hypercholesterolemia, unspecified; Z79.01 Long term (current) use of anticoagulants; Z79.899 Other long term (current) drug therapy; Z20.828 Contact with and (suspected) exposure to other viral communicable diseases
CPT/HCPCS: 0241U; 36415; 43239; 43247; 43249; 80053; 84484; 85025; 85610; 85730; 93005; 96374; 99284; G0378; 99100; 99140; C1726; J1642; J2704; A9270-GY

== ENCOUNTER 2022-03-26 11:53 | Inpatient (IN) | payer MEDICARE ==
--- NOTE | 2022-03-26 11:56 | ERPHSYRPT ---
- History of Present Illness Time Seen by Provider: 03/26/22 12:05 Source: patient, family, old records Exam Limitations: clinical condition Physician History: This is an 81-year-old white male patient of Dr. Srivastava who is a former smoker and has a history of hyperlipidemia, hypertension, hypothyroidism, gout and is on Plavix and presents with a 30-day history of intermittent shortness of breath. However, in the last 4 days his symptoms have worsened. Approximately 30 days ago he was diagnosed with a "flu". Patient was hypoxic on arrival to the emergency department the room air oxygen saturation level 88%. Patient also complains of cough. He denies chest pain. He denies abdominal pain. He has had no nausea vomiting or diarrhea. Additional history obtained from patient's family/daughter and old records from [facility]. Timing/Duration: day(s) (Symptoms worsening over the last 4 days), worse, other (Symptoms present for 30 days) Activities at Onset: activity Severity of Dyspnea-Max: moderate Severity of Dyspnea-Current: moderate Possible Cause: no prior episodes Modifying Factors: Improves With: coughing, oxygen (Improved) Associated Symptoms: cough, No chest pain/discomfort Allergies/Adverse Reactions: shrimp Allergy (Verified 03/26/22 12:03) Sulfa (Sulfonamide Antibiotics) Allergy (Verified 03/26/22 12:03) Home Medications: Amlodipine Besylate 5 mg PO DAILY 09/28/16 [History] Simvastatin 40 mg PO HS 09/28/16 [History] Aspirin 81 tab PO HS 12/28/16 [History] Clopidogrel Bisulfate [PLAVIX Tablet] 1 tab DAILY 12/28/16 [History] Levothyroxine Sodium 75 Mcg [Synthroid 75 Mcg] 75 mcg PO DAILY 07/18/21 [History] Potassium Chloride 30 meq PO DAILY 07/18/21 [History] Allopurinol 100 mg [Zyloprim 100 mg] 100 mg PO BID 07/19/21 [History] Ibuprofen 200 mg [Motrin 200 mg] 400 mg PO BID 07/19/21 [History] Metoprolol Tartrate 50 mg [Lopressor 50 MG] 50 mg PO BID 07/19/21 [History] Tamsulosin HCl 0.4 mg [Flomax 0.4 MG] 0.4 mg PO BID 07/19/21 [History] Hx Tetanus, Diphtheria Vaccination/Date Given: Yes Hx Influenza Vaccination/Date Given: No Hx Pneumococcal Vaccination/Date Given: No Travel Risk - International Travel Have you traveled outside of the country in past 3 weeks: No - Coronavirus Screening Are you exhibiting any of the following symptoms?: Yes Symptoms: Cough: New Onset, Shortness of Breath Close contact with a COVID-19 positive Pt in past 14-21 Days: No - Vaccine Status Have you recieved a Covid-19 vaccination: Yes Crystal Lapper: Monitor - Vaccination Dates Date of 2cond Vaccination (if applicable): 2020 - Review of Systems Constitutional: Weakness Eyes: No Symptoms Ears, Nose, & Throat: No Symptoms Respiratory: Cough, Dyspnea Cardiac: No Symptoms Abdominal/Gastrointestinal: No Symptoms Genitourinary Symptoms: No Symptoms Musculoskeletal: No Symptoms Skin: No Symptoms Neurological: No Symptoms Psychological: No Symptoms Endocrine: No Symptoms Hematologic/Lymphatic: No Symptoms Immunological/Allergic: No Symptoms All Other Systems: Reviewed and Negative - Past Medical History Pertinent Past Medical History: Yes Neurological History: No Pertinent History ENT History: No Pertinent History Cardiac History: High Cholesterol, Hypertension Respiratory History: No Pertinent History Endocrine Medical History: No Pertinent History Musculoskeletal History: Arthritis GI Medical History: No Pertinent History History: No Pertinent History, Bladder Cancer Psycho-Social History: No Pertinent History Male Reproductive Disorders: No Pertinent History Other Medical History: HTN,CHOLESTEROL - Past Surgical History Past Surgical History: Yes Other Surgical History: carotid artery - Social History Smoking Status: Former smoker Exposure to second hand smoke: No Drug Use: none Patient Lives Alone: No ( here with ) Significant Family History: no pertinent family hx - Nursing Vital Signs Nursing Vital Signs: Initial Vital Signs Temperature 98.3 F 03/26/22 12:01 Pulse Rate 103 H 03/26/22 12:01 Respiratory Rate 30 H 03/26/22 12:01 Blood Pressure 171/58 03/26/22 12:01 O2 Sat by Pulse Oximetry 94 L 03/26/22 12:01 Pain Scale Pain Intensity 0 - Physical Exam General Appearance: mild distress, alert, anxiety Eye Exam: PERRL/EOMI, eyes nml inspection Ears, Nose, Throat Exam: hearing decreased (Patient is chronically hard of hearing) Neck Exam: normal inspection, non-tender, supple, full range of motion Respiratory Exam: respiratory distress (Mild), airway intact, diminished breath sounds (Bilateral bases), No chest tenderness, No accessory muscle use Cardiovascular/Chest Exam: normal heart sounds, regular rate/rhythm Abdominal/Gastrointestinal Exam: soft, normal bowel sounds, No tenderness Rectal Exam: not done Extremity Exam: non-tender, normal range of motion, pedal edema (Mild feet and ankle edema to palpation) Neurologic Exam: alert, oriented x 3, cooperative, educational resource coordinator II-XII nml as tested, normal mood/affect, sensation nml Skin Exam: normal color, warm, dry Lymphatic Exam: No adenopathy SpO2 Interpretation: hypoxic (On arrival 88% was there is room air oxygenation level. After placement of 2 L nasal cannula oxygen his oxygenation level increased to 94%) - Course Nursing assessment & vital signs reviewed: Yes EKG Interpreted by Me: RATE (105), Sinus Tach, Left Leon Deviation, NORMAL QRS, Non-specific ST Changes, Other (No acute ischemic changes on today's twelve-lead EKG. This was read by me.) Ordered Tests: Active Orders 24 hr Category Date Time Status Air Hammer Stripper STAT Care 03/26/22 12:17 Active EKG-ER Only STAT Care 03/26/22 12:16 Active IV Insertion STAT Care 03/26/22 12:16 Active Pulse Oximetry (ED) STAT Care 03/26/22 12:16 Active CHEST 1 VIEW (PORTABLE) Stat Exams 03/26/22 12:17 Completed BLOOD CULTURE Stat Lab 03/26/22 12:44 Received CBC W DIFF Stat Lab 03/26/22 12:28 Completed CMP Stat Lab 03/26/22 12:28 Completed Lactic Acid Stat Lab 03/26/22 12:30 Completed Lactic Acid Stat Lab 03/26/22 14:39 Received MAGNESIUM Stat Lab 03/26/22 12:28 Completed NT PRO BNP Stat Lab 03/26/22 12:28 Completed TROPONIN Q4H Lab 03/26/22 12:28 Completed TROPONIN Q4H Lab 03/26/22 16:30 Ordered TROPONIN Q4H Lab 03/26/22 20:30 Ordered Respiratory Therapy Assessment DAILY RT 03/26/22 12:44 Active Medication Summary Generic Name Dose Route Start Last Admin Trade Name Freq PRN Reason Stop Dose Admin Sodium Chloride 1,000 mls @ 250 mls/hr 03/26/22 13:45 03/26/22 14:11 Sodium Chloride 0.9% 1000 Ml IV 04/25/22 13:44 250 mls/hr .Q4H MIKI Administration Discontinued Medications Generic Name Dose Route Start Last Admin Trade Name Db PRN Reason Stop Dose Admin Albuterol Sulfate 2.5 mg 03/26/22 12:17 03/26/22 12:30 Albuterol Sulfate 2.5 Mg/3 Ml Neb IH 03/26/22 12:18 2.5 mg STAT ONE Administration Albuterol Sulfate Confirm 03/26/22 12:23 Albuterol Sulfate 2.5 Mg/3 Ml Neb Administered 03/26/22 12:24 Dose 2.5 mg IH .STK-MED ONE Methylprednisolone Sodium 0 mg 03/26/22 12:16 03/26/22 12:40 Succinate 125 mg/ Sterile IV 03/26/22 12:17 125 mg Water 2 ml STAT ONE Administration Ceftriaxone Sodium/Dextrose 1 g in 50 mls @ 100 mls/hr 03/26/22 14:16 03/26/22 14:40 Rocephin 1 Gm-D5w 50 Ml Bag IV 03/26/22 14:45 100 mls/hr STAT STA 100 mls/hr Administration Ceftriaxone Sodium/Dextrose Confirm 03/26/22 14:37 Rocephin 1 Gm-D5w 50 Ml Bag Administered 03/26/22 14:38 Dose 1 g in 50 mls @ ud IV .STK-MED ONE Methylprednisolone Sodium Succinate Confirm 03/26/22 12:28 Methylprednis Sod Succ 125 Mg/2 Ml Vial Administered 03/26/22 12:29 Dose 125 mg .ROUTE .STK-MED ONE Sterile Water Confirm 03/26/22 12:28 Water For Injection,Sterile 10 Ml Vial Administered 03/26/22 12:29 Dose 10 ml IJ .STK-MED ONE Lab/Rad Data: Laboratory Result Diagrams 03/26/22 12:28 03/26/22 12:28 Laboratory Results 03/26/22 03/26/22 03/26/22 Range/Units 12:46 12:30 12:28 WBC (4.0-10.5) x10^3/uL RBC (4.1-5.6) x10^6/uL Hgb (12.5-18.0) g/dL Hct (42-50) % MCV (78-100) fL MCH (26-32) pg MCHC (32-36) g/dL RDW (11.5-14.0) % Plt Count (150-450) x10^3/uL MPV (7.5-11.0) fL Gran % (36.0-66.0) % Immature Gran % (Auto) (0.00-0.4) % Nucleat RBC Rel Count (0.00-0.1) % Eos # (Auto) (0-0.5) x10^3/uL Immature Gran # (Auto) (0.00-0.03) x10^3u/L Absolute Lymphs (auto) (1.0-4.6) x10^3/uL Absolute Monos (auto) (0.0-1.3) x10^3/uL Absolute Nucleated RBC (0.00-0.01) x10^3u/L Lymphocytes % (24.0-44.0) % Monocytes % (0.0-12.0) % Eosinophils % (0.00-5.0) % Basophils % (0.0-0.4) % Absolute Granulocytes (1.4-6.9) x10^3/uL Basophils # (0-0.4) x10^3/uL Sodium (137-145) mmol/L Potassium (3.5-5.1) mmol/L Chloride (98-107) mmol/L Carbon Dioxide (22-30) mmol/L Anion Gap (5-15) MEQ/L BUN (9-20) mg/dL Creatinine (0.66-1.25) mg/dL Estimated GFR ML/MIN Glucose (74-106) mg/dL Lactic Acid 2.3 H (0.4-2.0) Calcium (8.4-10.2) mg/dL Magnesium (1.6-2.3) mg/dL Total Bilirubin (0.2-1.3) mg/dL AST (17-59) U/L ALT (0-50) U/L Alkaline Phosphatase (38-126) U/L Troponin I 0.028 (0.000-0.034) ng/mL NT-Pro-B Natriuret Pep (0-1800) pg/mL Serum Total Protein (6.3-8.2) g/dL Albumin (3.5-5.0) g/dL Influenza Type A Ag NEGATIVE (NEGATIVE) Influenza Type B Ag NEGATIVE (NEGATIVE) RSV (PCR) NEGATIVE (Negative) SARS-CoV-2 (PCR) NEGATIVE (NEGATIVE) 03/26/22 03/26/22 Range/Units 12:28 12:28 WBC 15.4 H (4.0-10.5) x10^3/uL RBC 3.98 L (4.1-5.6) x10^6/uL Hgb 11.0 L (12.5-18.0) g/dL Hct 33.9 L (42-50) % MCV 85.2 (78-100) fL MCH 27.6 (26-32) pg MCHC 32.4 (32-36) g/dL RDW 16.0 H (11.5-14.0) % Plt Count 395 (150-450) x10^3/uL MPV 9.9 (7.5-11.0) fL Gran % 93.1 H (36.0-66.0) % Immature Gran % (Auto) 0.7 H (0.00-0.4) % Nucleat RBC Rel Count 0.0 (0.00-0.1) % Eos # (Auto) 0.01 (0-0.5) x10^3/uL Immature Gran # (Auto) 0.11 H (0.00-0.03) x10^3u/L Absolute Lymphs (auto) 0.55 L (1.0-4.6) x10^3/uL Absolute Monos (auto) 0.35 (0.0-1.3) x10^3/uL Absolute Nucleated RBC 0.00 (0.00-0.01) x10^3u/L Lymphocytes % 3.6 L (24.0-44.0) % Monocytes % 2.3 (0.0-12.0) % Eosinophils % 0.1 (0.00-5.0) % Basophils % 0.2 (0.0-0.4) % Absolute Granulocytes 14.38 H (1.4-6.9) x10^3/uL Basophils # 0.03 (0-0.4) x10^3/uL Sodium 137 (137-145) mmol/L Potassium 4.1 (3.5-5.1) mmol/L Chloride 113 H (98-107) mmol/L Carbon Dioxide 13 L* (22-30) mmol/L Anion Gap 15.0 (5-15) MEQ/L BUN 47 H (9-20) mg/dL Creatinine 2.45 H (0.66-1.25) mg/dL Estimated GFR 27.1 ML/MIN Glucose 132 H (74-106) mg/dL Lactic Acid (0.4-2.0) Calcium 8.7 (8.4-10.2) mg/dL Magnesium 2.2 (1.6-2.3) mg/dL Total Bilirubin 0.80 (0.2-1.3) mg/dL AST 52 (17-59) U/L ALT 42 (0-50) U/L Alkaline Phosphatase 174 H (38-126) U/L Troponin I (0.000-0.034) ng/mL NT-Pro-B Natriuret Pep 971 (0-1800) pg/mL Serum Total Protein 6.9 (6.3-8.2) g/dL Albumin 3.2 L (3.5-5.0) g/dL Influenza Type A Ag (NEGATIVE) Influenza Type B Ag (NEGATIVE) RSV (PCR) (Negative) SARS-CoV-2 (PCR) (NEGATIVE) - Progress Progress: improved, re-examined Air Movement: fair Progress Note: 03/26/22 15:24 Medical decision making: This patient does have bibasilar groundglass appearance airspace disease. There is no comparison chest x-ray that I was able to compare today's chest x-ray to. Patient has a normal BNP and a normal troponin level. He was hypoxic upon entrance into the emergency department. He feels much improved after our treatment. However, I do not think the patient is ready to be discharged to home. I believe he should be placed in observation and given intravenous Rocephin and azithromycin, intravenous steroids and intravenous fluids. We will provide him with nebulizer treatments and repeat labs in the morning. I spoke with Dr. Milton Hirsch and she agrees with this plan. Blood Culture(s) Obtained: Yes Counseled pt/family regarding: lab results, diagnosis, rad results - Departure Departure Disposition: Observation Clinical Impression: Hypoxia, Bilateral pneumonia, Leukocytosis Condition: Fair Critical Care Time: No Referrals: SARAHI SRIVASTAVA [Primary Care Provider] - Follow up/PCP as directed
[2022-03-26] MEDS ORDERED: solu-MEDROL 125 MG, Sterile H2O 10 ml 2 ML IV ONE ×2 (12:16)
[2022-03-26] MEDS ORDERED: PROVENTIL 2.5 MG/3 ML NEB IH ONE ×2 (12:17→12:23)
[2022-03-26] MEDS ORDERED: Sterile H2O 10 ml IJ ONE (12:28)
[2022-03-26] MEDS ORDERED: solu-MEDROL ONE (12:28)
--- NOTE | 2022-03-26 12:40 | XRAY ---
Indication: Short of breath. Comparison: None Portable chest demonstrates diffuse bilateral patchy groundglass airspace disease without consolidation/large effusion. Heart not enlarged with incidental left hilar calcified node and right Port-A-Cath. Bony thorax intact with osteopenia and degenerative changes.
[2022-03-26 13:25] LABS: Absolute Neutrophil Ct (ANC) 14.38 x10^3/uL (1.4-6.9); Basophil (Absolute #) 0.03 x10^3/uL (0-0.4); Eosinophil % 0.1 % (0.00-5.0); Eosinophil (Absolute #) 0.01 x10^3/uL (0-0.5); Hematocrit 33.9 % (42-50); Lymphocyte (Absolute #) 0.55 x10^3/uL (1.0-4.6); Lymphocytes % 3.6 % (24.0-44.0); Mean Cell Volume 85.2 fL (78-100); Mean Corpuscular Hemoglobin 27.6 pg (26-32); Mean Corpuscular Hgb Concent. 32.4 g/dL (32-36); Mean Platelet Volume 9.9 fL (7.5-11.0); Monocyte (Absolute #) 0.35 x10^3/uL (0.0-1.3); Monocytes % 2.3 % (0.0-12.0); Neutrophil % 93.1 % (36.0-66.0); Platelet Count 395 x10^3/uL (150-450); Red Blood Count 3.98 x10^6/uL (4.1-5.6); White Blood Count 15.4 x10^3/uL (4.0-10.5)
[2022-03-26] MEDS ORDERED: Sodium Chloride 0.9% 1000 ML 1,000 ML IV SCH (13:45)
[2022-03-26 13:54] LABS: ALBUMIN 3.2 g/dL (3.5-5.0); BILIRUBIN,TOTAL 0.8 mg/dL (0.2-1.3); Calcium 8.7 mg/dL (8.4-10.2); Creatinine 1 2.45 mg/dL (0.66-1.25); EST GLOMERULAR FILTRATION RATE 27.1 ML/MIN; MAGNESIUM 2.2 mg/dL (1.6-2.3); Potassium 4.1 mmol/L (3.5-5.1); Total Protein 6.9 g/dL (6.3-8.2)
[2022-03-26] MEDS ORDERED: Sodium Chloride 0.9% 1000 ML 1,000 ML ONE (14:01)
[2022-03-26 14:06] LABS: INFLUENZA A NEGATIVE (NEGATIVE); INFLUENZA B NEGATIVE (NEGATIVE); SARS-CoV-2 Xpert Express NEGATIVE (NEGATIVE)
[2022-03-26 14:07] LABS: RESPIRATORY SYNCTIAL VIRUS NEGATIVE (Negative)
[2022-03-26] MEDS ORDERED: ROCEPHIN 1 Gm-D5w 50 ml Bag** 1 G/50 ML IVPB IV STA (14:16)
[2022-03-26] MEDS ORDERED: ROCEPHIN 1 Gm-D5w 50 ml Bag** 1 G/50 ML IVPB IV ONE (14:37)
[2022-03-26 15:32] LABS: Slide Review 1 YES
[2022-03-26] MEDS ORDERED: Zofran 4 MG/2 ML VIAL IV PRN (16:13)
[2022-03-26] MEDS ORDERED: TYLENOL 325 MG PO PRN (16:13)
[2022-03-26] MEDS ORDERED: FLUZONE HIGH-DOSE QUAD 2022-23 IM ONE (18:00)
[2022-03-26] MEDS: Sodium Chloride 0.9% 1000 ML 1,000 ML IV SCH ×2 (18:09→23:32)
[2022-03-26] MEDS: Zithromax 500 MG/ 250 ML NaCl Premix 500 MG/250 ML IVPB IV SCH (18:11)
[2022-03-26] MEDS: PLAVIX Tablet PO SCH ×2 (18:12→18:22)
[2022-03-26] MEDS: PROVENTIL 2.5 MG/3 ML NEB IH SCH ×2 (19:52→23:32)
[2022-03-26] MEDS: solu-MEDROL 80 MG, Sterile H2O 10 ml 2 ML IV SCH ×2 (22:31)
[2022-03-26 23:52] LABS: A-aADO2 175; ABG HEMOGLOBIN 9.5; ABG POTASSIUM 3.8 (3.5-5.1); ARTERIAL BLD GAS O2 SATURATION 93.4 % (95-100); ARTERIAL BLOOD GAS BASE EXCESS -13.1 (-2.0-2.0); ARTERIAL BLOOD GAS FIO2 36 %; ARTERIAL BLOOD GAS PO2 60 mmHg (75-100); CARBOXYHEMOGLOBIN 1.4 % THgb (0.0-6.9); HCO3- 10.1 (22-28); HGB O2 SAT 91.3 g/dF (94-100); Methhemoglobin 0.7 % (1.4-1.5)
[2022-03-26 23:53] LABS: ABG SITE RIGHT BRACHIAL
[2022-03-27 01:19] LABS: ARTERIAL BLOOD GAS pH 7.38 (7.35-7.45)
[2022-03-27 01:20] LABS: ARTERIAL BLOOD GAS PCO2 17 mmHg (35-45)
[2022-03-27] MEDS: Flomax 0.4 MG PO SCH ×3 (01:40→21:47)
[2022-03-27] MEDS: ECOTRIN 81 MG PO SCH ×2 (01:40→21:47)
[2022-03-27] MEDS: ZOCOR 20MG PO SCH ×2 (01:41→21:47)
[2022-03-27] MEDS: MOTRIN 400 MG PO SCH ×3 (01:41→21:47)
[2022-03-27] MEDS: Lopressor 50 MG PO SCH ×3 (01:41→21:47)
[2022-03-27] MEDS: ZYLOPRIM 100 MG PO SCH ×3 (01:46→21:47)
[2022-03-27] MEDS: Proscar 5 MG PO SCH ×2 (02:08→21:47)
[2022-03-27] MEDS: PROVENTIL 2.5 MG/3 ML NEB IH SCH ×6 (03:46→22:04)
[2022-03-27 05:03] LABS: Absolute Neutrophil Ct (ANC) 11.46 x10^3/uL (1.4-6.9); Basophil (Absolute #) 0.01 x10^3/uL (0-0.4); Eosinophil (Absolute #) 0 x10^3/uL (0-0.5); Hematocrit 25.1 % (42-50); Hemoglobin 8.3 g/dL (12.5-18.0); Lymphocyte (Absolute #) 0.28 x10^3/uL (1.0-4.6); Lymphocytes % 2.3 % (24.0-44.0); Mean Cell Volume 83.9 fL (78-100); Mean Corpuscular Hemoglobin 27.8 pg (26-32); Mean Corpuscular Hgb Concent. 33.1 g/dL (32-36); Mean Platelet Volume 9.7 fL (7.5-11.0); Monocyte (Absolute #) 0.16 x10^3/uL (0.0-1.3); Monocytes % 1.3 % (0.0-12.0); Neutrophil % 95.5 % (36.0-66.0); Platelet Count 344 x10^3/uL (150-450); Red Blood Count 2.99 x10^6/uL (4.1-5.6)
[2022-03-27 05:41] LABS: ALBUMIN 2.6 g/dL (3.5-5.0); ANION GAP 11.4 MEQ/L (5-15); BILIRUBIN,TOTAL 0.3 mg/dL (0.2-1.3); Calcium 7.7 mg/dL (8.4-10.2); Creatinine 1 2.25 mg/dL (0.66-1.25); EST GLOMERULAR FILTRATION RATE 29.9 ML/MIN; Potassium 3.7 mmol/L (3.5-5.1); Total Protein 5.8 g/dL (6.3-8.2)
[2022-03-27 06:02] LABS: A-aADO2 229; ABG HEMOGLOBIN 9.5; ABG POTASSIUM 3.7 (3.5-5.1); ABG SITE RIGHT BRACHIAL; ARTERIAL BLD GAS O2 SATURATION 99.3 % (95-100); ARTERIAL BLOOD GAS BASE EXCESS -12.5 (-2.0-2.0); ARTERIAL BLOOD GAS FIO2 50 %; ARTERIAL BLOOD GAS PCO2 19 mmHg (35-45); ARTERIAL BLOOD GAS PO2 104 mmHg (75-100); ARTERIAL BLOOD GAS pH 7.37 (7.35-7.45); HGB O2 SAT 97.5 g/dF (94-100); Methhemoglobin 0.8 % (1.4-1.5)
[2022-03-27] MEDS ORDERED: solu-MEDROL ONE (06:25)
[2022-03-27] MEDS: solu-MEDROL 80 MG, Sterile H2O 10 ml 2 ML IV SCH ×6 (06:48→21:44)
[2022-03-27] MEDS: Sodium Chloride 0.9% 1000 ML 1,000 ML IV SCH ×3 (07:18→21:57)
[2022-03-27 07:27] LABS: Slide Review 1 YES
[2022-03-27] MEDS: Klor Con PO SCH (08:27)
[2022-03-27] MEDS: SYNTHROID 75 MCG PO SCH (08:27)
[2022-03-27] MEDS: PLAVIX Tablet PO SCH (08:28)
[2022-03-27] MEDS: NORVASC 5 MG PO SCH (08:28)
[2022-03-27] MEDS: Singulair 10 MG PO SCH (08:28)
[2022-03-27] MEDS ORDERED: NON-FORMULARY ITEM (Amlodipine Besylate [Amlodipine Besylate] 10 MG Tablet) PO SCH (10:00)
[2022-03-27] MEDS ORDERED: ROCEPHIN 1 Gm-D5w 50 ml Bag** 1 G/50 ML IVPB IV SCH (10:00)
[2022-03-27] MEDS: Zithromax 500 MG/ 250 ML NaCl Premix 500 MG/250 ML IVPB IV SCH (10:07)
[2022-03-27] MEDS: Ativan 2 MG/1 ML VIAL IV PRN ×4 (11:08→21:40)
--- NOTE | 2022-03-27 11:26 | XRAY ---
Indication: Pneumonia. Tachypnea. Covid 19. Multiple contiguous axial images obtained through the chest without contrast. Comparison: None Markedly diffuse bilateral groundglass airspace disease without consolidation/effusion. Heart not enlarged with scattered coronary calcifications and incidental right Port-A-Cath. Aorta moderately atherosclerotic without aneurysm. Small mediastinal and bilateral perihilar calcified nodes. Prominent matted adenopathy in the AP window measuring at least 2.5 x 3.9 cm presumed reactive. Smaller 1.9 x 1.3 cm distal paratracheal node. Bony thorax intact with osteopenia and moderate degenerative changes throughout the spine. Limited upper abdomen demonstrates tiny hepatic/splenic calcified granulomas. Impression: 1. Diffuse bilateral groundglass airspace disease without consolidation/effusion. 2. Matted mediastinal adenopathy presumed reactive. 3. Chronic findings including arteriosclerotic disease, chronic bony findings, and old granulomatous disease.
--- NOTE | 2022-03-27 11:26 | PCM.HP ---
History of Present Illness - Chief Complaint Chief Complaint: CAIT PNEUMONIA, HYPOXIA History of Present Illness: is a 81 year old male pt of Dr. Srivastava with HTN, HLD, hypothyroidism and hx bladder ca who was admitted through ER with bilateral pneumonia and hypoxemia. CXR showed bilat ground glass airspace disease. He was given nebs, antibiotics (rocephin and zithromax) and started on solumedrol 80IV q8h. WBC 15.4. Troponins and BNP nl. LA 2.3. Overnight, his respiratory status worsened and he was placed on Hi-Flow after ABG showed low CO2. Upon recheck, it was minimally higher (17, up from 15) but it was noted then that HCO3 was low, 11 (pH has been wnl). Dr. Aragon was consulted, thank you, and he recommended bipap but pt wanted to eat breakfast first. Will do CT chest before the bipap is placed. Pt says he feels better this morning. Says the last 5d he's really felt a lot worse. - Review of Systems Respiratory: Cough, Short Of Breath Genitourinary Symptoms: Dysuria All Other Systems: Reviewed and Negative Medications & Allergies Home Medications: Home Medication List Simvastatin 20 mg PO HS 09/28/16 [History Confirmed 03/26/22] Aspirin 81 tab PO HS 12/28/16 [History Confirmed 03/26/22] Clopidogrel Bisulfate [PLAVIX Tablet] 75 mg PO DAILY 12/28/16 [History Confirmed 03/26/22] Levothyroxine Sodium 75 Mcg [Synthroid 75 Mcg] 75 mcg PO DAILY 07/18/21 [History Confirmed 03/26/22] Allopurinol 100 mg [Zyloprim 100 mg] 100 mg PO BID 07/19/21 [History Confirmed 03/26/22] Ibuprofen 200 mg [Motrin 200 mg] 400 mg PO BID 07/19/21 [History Confirmed 03/26/22] Metoprolol Tartrate 50 mg [Lopressor 50 MG] 50 mg PO BID 07/19/21 [History Confirmed 03/26/22] Tamsulosin HCl 0.4 mg [Flomax 0.4 MG] 0.4 mg PO BID 07/19/21 [History Confirmed 03/26/22] Amlodipine Besylate 10 mg PO DAILY 03/26/22 [History Confirmed 03/26/22] Finasteride 5 mg [Proscar 5 MG] 5 mg PO HS 03/26/22 [History Confirmed 03/26/22] Montelukast Sodium 10 mg [Singulair 10 MG] 10 mg PO DAILY 03/26/22 [History Confirmed 03/26/22] Potassium Chloride Tab* [Klor Con] 20 meq PO DAILY 03/26/22 [History Confirmed 03/26/22] Allergies/Adverse Reactions: Allergies Allergy/AdvReac Type Severity Reaction Status Date / Time shrimp Allergy Verified 03/26/22 17:16 Sulfa (Sulfonamide Allergy Verified 03/26/22 17:16 Antibiotics) - Past Medical History Past Medical History: Yes Neurological History: No Pertinent History ENT History: No Pertinent History Cardiac History: Coronary Artery Disease, High Cholesterol, Hypertension Respiratory History: No Pertinent History Endocrine Medical History: No Pertinent History Musculoskelatal History: Arthritis GI Medical History: No Pertinent History, Diverticulitis History: No Pertinent History, Bladder Cancer Pyscho-Social History: No Pertinent History Male Reproductive Disorders: No Pertinent History Comment: HTN,CHOLESTEROL - Past Surgical History Past Surgical History: Yes Neuro Surgical History: No Pertinent History Cardiac History: No Pertinent History Respiratory Surgery: No Pertinent History GI Surgical History: No Pertinent History Genitourinary Surgical Hx: No Pertinent History Musculskeletal Surgical Hx: No Pertinent History Male Surgical History: No Pertinent History Other Surgical History: carotid artery - Social History Smoking Status: Former smoker Exposure to second hand smoke: No Alcohol: None Drug Use: none Significant Family History: no pertinent family hx - Physical Exam Vital Signs: Vital Signs - 24 hr Temp Pulse Resp BP Pulse Ox 03/27/22 07:20 82 24 95 03/27/22 07:08 97.9 F 89 16 127/58 90 L 03/27/22 05:19 97.8 F 97 H 24 150/66 97 03/27/22 03:46 80 22 97 03/27/22 00:30 95 03/27/22 00:00 97.8 F 96 H 28 H 115/55 88 L 03/26/22 23:48 93 L 03/26/22 23:32 120 H 30 H 89 L 03/26/22 20:00 97.8 F 80 29 H 125/58 93 L 03/26/22 19:52 86 24 93 L 03/26/22 16:24 82 24 92 L 03/26/22 16:13 98.6 F 87 20 146/64 97 03/26/22 15:51 65 24 125/48 95 03/26/22 14:46 74 22 116/47 95 03/26/22 13:04 74 24 140/66 91 L 03/26/22 12:44 89 20 95 03/26/22 12:25 94 L 03/26/22 12:11 30 H 93 L 03/26/22 12:01 98.3 F 103 H 30 H 171/58 94 L General Appearance: no apparent distress, alert Neurologic Exam: oriented x 3, cooperative Eye Exam: eyes nml inspection Ears, Nose, Throat Exam: moist mucous membranes Neck Exam: normal inspection Respiratory Exam: diminished breath sounds (poor to fair air exchange), prolonged expirations, wheezing (faint exp wheeze throughout), other (On hi flow. mildly tachypneic - able to answer questions however.), No crackles/rales, No rhonchi Cardiovascular Exam: normal heart sounds, tachycardia, No murmur Gastrointestinal/Abdomen Exam: soft, normal bowel sounds, No tenderness, No distention, No mass, No guarding, No rebound Back Exam: normal inspection, No rash Extremity Exam: normal inspection, No pedal edema, No swelling Skin Exam: normal color, warm, dry, No rash Results - Labs Lab/Micro Results: Lab Results-Last 24 Hours 03/26/22 03/26/22 03/26/22 Range/Units 12:28 12:28 12:28 WBC 15.4 H (4.0-10.5) x10^3/uL RBC 3.98 L (4.1-5.6) x10^6/uL Hgb 11.0 L (12.5-18.0) g/dL Hct 33.9 L (42-50) % MCV 85.2 (78-100) fL MCH 27.6 (26-32) pg MCHC 32.4 (32-36) g/dL RDW 16.0 H (11.5-14.0) % Plt Count 395 (150-450) x10^3/uL MPV 9.9 (7.5-11.0) fL Gran % 93.1 H (36.0-66.0) % Immature Gran % (Auto) 0.7 H (0.00-0.4) % Nucleat RBC Rel Count 0.0 (0.00-0.1) % Eos # (Auto) 0.01 (0-0.5) x10^3/uL Immature Gran # (Auto) 0.11 H (0.00-0.03) x10^3u/L Absolute Lymphs (auto) 0.55 L (1.0-4.6) x10^3/uL Absolute Monos (auto) 0.35 (0.0-1.3) x10^3/uL Absolute Nucleated RBC 0.00 (0.00-0.01) x10^3u/L Lymphocytes % 3.6 L (24.0-44.0) % Monocytes % 2.3 (0.0-12.0) % Eosinophils % 0.1 (0.00-5.0) % Basophils % 0.2 (0.0-0.4) % Absolute Granulocytes 14.38 H (1.4-6.9) x10^3/uL Basophils # 0.03 (0-0.4) x10^3/uL Puncture Site pCO2 (35-45) mmHg pO2 (75-100) mmHg Base Excess (-2.0-2.0) O2 Saturation (94-100) g/dF ABG pH (7.35-7.45) ABG HCO3 (22-28) ABG O2 Sat (Measured) (95-100) % Jon Test A-a Gradient a/A Ratio Hemoglobin Carboxyhemoglobin (0.0-6.9) % THgb Methemoglobin (1.4-1.5) % Temperature C POC O2 Flow Rate % Sodium 137 (137-145) mmol/L Potassium 4.1 (3.5-5.1) mmol/L Chloride 113 H (98-107) mmol/L Carbon Dioxide 13 L* (22-30) mmol/L Anion Gap 15.0 (5-15) MEQ/L BUN 47 H (9-20) mg/dL Creatinine 2.45 H (0.66-1.25) mg/dL Estimated GFR 27.1 ML/MIN Glucose 132 H (74-106) mg/dL Lactic Acid (0.4-2.0) Calcium 8.7 (8.4-10.2) mg/dL Magnesium 2.2 (1.6-2.3) mg/dL Total Bilirubin 0.80 (0.2-1.3) mg/dL AST 52 (17-59) U/L ALT 42 (0-50) U/L Alkaline Phosphatase 174 H (38-126) U/L Troponin I 0.028 (0.000-0.034) ng/mL NT-Pro-B Natriuret Pep 971 (0-1800) pg/mL Serum Total Protein 6.9 (6.3-8.2) g/dL Albumin 3.2 L (3.5-5.0) g/dL Influenza Type A Ag (NEGATIVE) Influenza Type B Ag (NEGATIVE) RSV (PCR) (Negative) SARS-CoV-2 (PCR) (NEGATIVE) Slides for Path Review YES 03/26/22 03/26/22 03/26/22 Range/Units 12:30 12:46 15:59 WBC (4.0-10.5) x10^3/uL RBC (4.1-5.6) x10^6/uL Hgb (12.5-18.0) g/dL Hct (42-50) % MCV (78-100) fL MCH (26-32) pg MCHC (32-36) g/dL RDW (11.5-14.0) % Plt Count (150-450) x10^3/uL MPV (7.5-11.0) fL Gran % (36.0-66.0) % Immature Gran % (Auto) (0.00-0.4) % Nucleat RBC Rel Count (0.00-0.1) % Eos # (Auto) (0-0.5) x10^3/uL Immature Gran # (Auto) (0.00-0.03) x10^3u/L Absolute Lymphs (auto) (1.0-4.6) x10^3/uL Absolute Monos (auto) (0.0-1.3) x10^3/uL Absolute Nucleated RBC (0.00-0.01) x10^3u/L Lymphocytes % (24.0-44.0) % Monocytes % (0.0-12.0) % Eosinophils % (0.00-5.0) % Basophils % (0.0-0.4) % Absolute Granulocytes (1.4-6.9) x10^3/uL Basophils # (0-0.4) x10^3/uL Puncture Site pCO2 (35-45) mmHg pO2 (75-100) mmHg Base Excess (-2.0-2.0) O2 Saturation (94-100) g/dF ABG pH (7.35-7.45) ABG HCO3 (22-28) ABG O2 Sat (Measured) (95-100) % Jon Test A-a Gradient a/A Ratio Hemoglobin Carboxyhemoglobin (0.0-6.9) % THgb Methemoglobin (1.4-1.5) % Temperature C POC O2 Flow Rate % Sodium (137-145) mmol/L Potassium (3.5-5.1) mmol/L Chloride (98-107) mmol/L Carbon Dioxide (22-30) mmol/L Anion Gap (5-15) MEQ/L BUN (9-20) mg/dL Creatinine (0.66-1.25) mg/dL Estimated GFR ML/MIN Glucose (74-106) mg/dL Lactic Acid 2.3 H (0.4-2.0) Calcium (8.4-10.2) mg/dL Magnesium (1.6-2.3) mg/dL Total Bilirubin (0.2-1.3) mg/dL AST (17-59) U/L ALT (0-50) U/L Alkaline Phosphatase (38-126) U/L Troponin I 0.021 (0.000-0.034) ng/mL NT-Pro-B Natriuret Pep (0-1800) pg/mL Serum Total Protein (6.3-8.2) g/dL Albumin (3.5-5.0) g/dL Influenza Type A Ag NEGATIVE (NEGATIVE) Influenza Type B Ag NEGATIVE (NEGATIVE) RSV (PCR) NEGATIVE (Negative) SARS-CoV-2 (PCR) NEGATIVE (NEGATIVE) Slides for Path Review 03/26/22 03/26/22 03/26/22 Range/Units 20:40 20:46 23:37 WBC (4.0-10.5) x10^3/uL RBC (4.1-5.6) x10^6/uL Hgb (12.5-18.0) g/dL Hct (42-50) % MCV (78-100) fL MCH (26-32) pg MCHC (32-36) g/dL RDW (11.5-14.0) % Plt Count (150-450) x10^3/uL MPV (7.5-11.0) fL Gran % (36.0-66.0) % Immature Gran % (Auto) (0.00-0.4) % Nucleat RBC Rel Count (0.00-0.1) % Eos # (Auto) (0-0.5) x10^3/uL Immature Gran # (Auto) (0.00-0.03) x10^3u/L Absolute Lymphs (auto) (1.0-4.6) x10^3/uL Absolute Monos (auto) (0.0-1.3) x10^3/uL Absolute Nucleated RBC (0.00-0.01) x10^3u/L Lymphocytes % (24.0-44.0) % Monocytes % (0.0-12.0) % Eosinophils % (0.00-5.0) % Basophils % (0.0-0.4) % Absolute Granulocytes (1.4-6.9) x10^3/uL Basophils # (0-0.4) x10^3/uL Puncture Site RIGHT BRACHIAL pCO2 17 L* (35-45) mmHg pO2 60 L (75-100) mmHg Base Excess -13.1 L (-2.0-2.0) O2 Saturation 91.3 L (94-100) g/dF ABG pH 7.38 (7.35-7.45) ABG HCO3 10.1 L* (22-28) ABG O2 Sat (Measured) 93.4 L (95-100) % Jon Test NOT APPLICABLE A-a Gradient 175 a/A Ratio 0.26 Hemoglobin 9.5 Carboxyhemoglobin 1.4 (0.0-6.9) % THgb Methemoglobin 0.7 L (1.4-1.5) % Temperature 37.0 C POC O2 Flow Rate 36 % Sodium (137-145) mmol/L Potassium 3.8 (3.5-5.1) mmol/L Chloride (98-107) mmol/L Carbon Dioxide (22-30) mmol/L Anion Gap (5-15) MEQ/L BUN (9-20) mg/dL Creatinine (0.66-1.25) mg/dL Estimated GFR ML/MIN Glucose (74-106) mg/dL Lactic Acid 1.7 (0.4-2.0) Calcium (8.4-10.2) mg/dL Magnesium (1.6-2.3) mg/dL Total Bilirubin (0.2-1.3) mg/dL AST (17-59) U/L ALT (0-50) U/L Alkaline Phosphatase (38-126) U/L Troponin I 0.018 (0.000-0.034) ng/mL NT-Pro-B Natriuret Pep (0-1800) pg/mL Serum Total Protein (6.3-8.2) g/dL Albumin (3.5-5.0) g/dL Influenza Type A Ag (NEGATIVE) Influenza Type B Ag (NEGATIVE) RSV (PCR) (Negative) SARS-CoV-2 (PCR) (NEGATIVE) Slides for Path Review 03/27/22 03/27/22 03/27/22 Range/Units 04:30 04:30 05:54 WBC 12.0 H (4.0-10.5) x10^3/uL RBC 2.99 L (4.1-5.6) x10^6/uL Hgb 8.3 L D (12.5-18.0) g/dL Hct 25.1 L (42-50) % MCV 83.9 (78-100) fL MCH 27.8 (26-32) pg MCHC 33.1 (32-36) g/dL RDW 16.0 H (11.5-14.0) % Plt Count 344 (150-450) x10^3/uL MPV 9.7 (7.5-11.0) fL Gran % 95.5 H (36.0-66.0) % Immature Gran % (Auto) 0.8 H (0.00-0.4) % Nucleat RBC Rel Count 0.0 (0.00-0.1) % Eos # (Auto) 0 (0-0.5) x10^3/uL Immature Gran # (Auto) 0.09 H (0.00-0.03) x10^3u/L Absolute Lymphs (auto) 0.28 L (1.0-4.6) x10^3/uL Absolute Monos (auto) 0.16 (0.0-1.3) x10^3/uL Absolute Nucleated RBC 0.00 (0.00-0.01) x10^3u/L Lymphocytes % 2.3 L (24.0-44.0) % Monocytes % 1.3 (0.0-12.0) % Eosinophils % 0.0 (0.00-5.0) % Basophils % 0.1 (0.0-0.4) % Absolute Granulocytes 11.46 H (1.4-6.9) x10^3/uL Basophils # 0.01 (0-0.4) x10^3/uL Puncture Site RIGHT BRACHIAL pCO2 19 L* (35-45) mmHg pO2 104 H (75-100) mmHg Base Excess -12.5 L (-2.0-2.0) O2 Saturation 97.5 (94-100) g/dF ABG pH 7.37 (7.35-7.45) ABG HCO3 11.0 L* (22-28) ABG O2 Sat (Measured) 99.3 (95-100) % Jon Test NOT APPLICABLE A-a Gradient 229 a/A Ratio 0.31 Hemoglobin 9.5 Carboxyhemoglobin 1.0 (0.0-6.9) % THgb Methemoglobin 0.8 L (1.4-1.5) % Temperature 37.0 C POC O2 Flow Rate 50 % Sodium 136 L (137-145) mmol/L Potassium 3.7 3.7 (3.5-5.1) mmol/L Chloride 116 H (98-107) mmol/L Carbon Dioxide 12 L* (22-30) mmol/L Anion Gap 11.4 (5-15) MEQ/L BUN 47 H (9-20) mg/dL Creatinine 2.25 H (0.66-1.25) mg/dL Estimated GFR 29.9 ML/MIN Glucose 219 H (74-106) mg/dL Lactic Acid (0.4-2.0) Calcium 7.7 L (8.4-10.2) mg/dL Magnesium (1.6-2.3) mg/dL Total Bilirubin 0.30 (0.2-1.3) mg/dL AST 40 (17-59) U/L ALT 36 (0-50) U/L Alkaline Phosphatase 152 H (38-126) U/L Troponin I (0.000-0.034) ng/mL NT-Pro-B Natriuret Pep 1700 (0-1800) pg/mL Serum Total Protein 5.8 L (6.3-8.2) g/dL Albumin 2.6 L (3.5-5.0) g/dL Influenza Type A Ag (NEGATIVE) Influenza Type B Ag (NEGATIVE) RSV (PCR) (Negative) SARS-CoV-2 (PCR) (NEGATIVE) Slides for Path Review YES 03/27/22 Range/Units 05:54 WBC (4.0-10.5) x10^3/uL RBC (4.1-5.6) x10^6/uL Hgb (12.5-18.0) g/dL Hct (42-50) % MCV (78-100) fL MCH (26-32) pg MCHC (32-36) g/dL RDW (11.5-14.0) % Plt Count (150-450) x10^3/uL MPV (7.5-11.0) fL Gran % (36.0-66.0) % Immature Gran % (Auto) (0.00-0.4) % Nucleat RBC Rel Count (0.00-0.1) % Eos # (Auto) (0-0.5) x10^3/uL Immature Gran # (Auto) (0.00-0.03) x10^3u/L Absolute Lymphs (auto) (1.0-4.6) x10^3/uL Absolute Monos (auto) (0.0-1.3) x10^3/uL Absolute Nucleated RBC (0.00-0.01) x10^3u/L Lymphocytes % (24.0-44.0) % Monocytes % (0.0-12.0) % Eosinophils % (0.00-5.0) % Basophils % (0.0-0.4) % Absolute Granulocytes (1.4-6.9) x10^3/uL Basophils # (0-0.4) x10^3/uL Puncture Site pCO2 (35-45) mmHg pO2 (75-100) mmHg Base Excess (-2.0-2.0) O2 Saturation (94-100) g/dF ABG pH (7.35-7.45) ABG HCO3 (22-28) ABG O2 Sat (Measured) (95-100) % Jon Test A-a Gradient a/A Ratio Hemoglobin Carboxyhemoglobin (0.0-6.9) % THgb Methemoglobin (1.4-1.5) % Temperature C POC O2 Flow Rate % Sodium (137-145) mmol/L Potassium (3.5-5.1) mmol/L Chloride (98-107) mmol/L Carbon Dioxide (22-30) mmol/L Anion Gap (5-15) MEQ/L BUN (9-20) mg/dL Creatinine (0.66-1.25) mg/dL Estimated GFR ML/MIN Glucose (74-106) mg/dL Lactic Acid 0.8 (0.4-2.0) Calcium (8.4-10.2) mg/dL Magnesium (1.6-2.3) mg/dL Total Bilirubin (0.2-1.3) mg/dL AST (17-59) U/L ALT (0-50) U/L Alkaline Phosphatase (38-126) U/L Troponin I (0.000-0.034) ng/mL NT-Pro-B Natriuret Pep (0-1800) pg/mL Serum Total Protein (6.3-8.2) g/dL Albumin (3.5-5.0) g/dL Influenza Type A Ag (NEGATIVE) Influenza Type B Ag (NEGATIVE) RSV (PCR) (Negative) SARS-CoV-2 (PCR) (NEGATIVE) Slides for Path Review - Radiology Impressions Radiology Exams & Impressions: Radiology Procedures Category Date Time Status CHEST 1 VIEW (PORTABLE) Stat Exams 03/26/22 12:17 Completed CHEST WITHOUT CONTRAST [CT] Stat Exams 03/27/22 10:31 Taken - Other Procedures and Tests Respiratory Therapy 03/26/22 12:44 Respiratory Therapy Assessment DAILY 03/26/22 16:13 Oxygen Nasal Cannula 2 lpm 03/27/22 02:04 Oxygen High Flow per RT 50% Assessment/Plan (1) Respiratory distress Current Visit: Yes Status: Acute Assessment & Plan: Will go on bipap per Dr. Aragon, thank you. On rocephin and zithromax day #2 (but < 24h). on 80mg solumedrol q8h. Code(s): R06.03 - ACUTE RESPIRATORY DISTRESS (2) Bilateral pneumonia Current Visit: Yes Status: Acute Qualifiers: Pneumonia type: due to unspecified organism Assessment & Plan: CT results are in - diffuse ground glass airspace dz, no consolidation. Code(s): J18.9 - PNEUMONIA, UNSPECIFIED ORGANISM (3) Hypoxia Current Visit: Yes Status: Acute Code(s): R09.02 - HYPOXEMIA (4) Leukocytosis Current Visit: Yes Status: Acute Qualifiers: Leukocytosis type: unspecified Qualified Code(s): D72.829 - Elevated white blood cell count, unspecified Code(s): D72.829 - ELEVATED WHITE BLOOD CELL COUNT, UNSPECIFIED (5) Renal insufficiency Current Visit: No Status: Chronic
[2022-03-27 12:52] LABS: A-aADO2 197; ABG HEMOGLOBIN 9.7; ABG POTASSIUM 3.9 (3.5-5.1); ARTERIAL BLD GAS TIDAL VOLUME 500 cc; ARTERIAL BLOOD GAS BASE EXCESS -12.9 (-2.0-2.0); ARTERIAL BLOOD GAS FIO2 45 %; ARTERIAL BLOOD GAS PCO2 20 mmHg (35-45); ARTERIAL BLOOD GAS PO2 99 mmHg (75-100); ARTERIAL BLOOD GAS VENT MODE BiPAP; ARTERIAL BLOOD GAS pH 7.35 (7.35-7.45); CARBOXYHEMOGLOBIN 1.1 % THgb (0.0-6.9); HGB O2 SAT 97.2 g/dF (94-100); Methhemoglobin 0.7 % (1.4-1.5)
[2022-03-27 12:53] LABS: ABG SITE RIGHT RADIAL; ALLEN TEST OK? YES
[2022-03-27 16:20] LABS: Appearance Clear (Clear); Bacteria None Seen /HPF (None Seen); Bilirubin Negative (Negative); Blood Small (Negative); Epithelial Cells None Seen /HPF (None Seen); Glucose, Urine Negative (Negative); Ketones Negative (Negative); Leukocyte Esterase Negative (Negative); Nitrite Negative (Negative); Protein,Urine Dip 300 (Negative); Specific Gravity 1.015 (1.005-1.030); Urobilinogen 0.2 mg/dL (0.2)
[2022-03-27 16:54] LABS: ADD URINE CULTURE? YES (NO)
[2022-03-28] MEDS: Ativan 2 MG/1 ML VIAL IV PRN ×3 (01:30→09:54)
[2022-03-28 02:05] LABS: A-aADO2 291; ABG HEMOGLOBIN 9.2; ABG POTASSIUM 3.7 (3.5-5.1); ARTERIAL BLD GAS O2 SATURATION 96.9 % (95-100); ARTERIAL BLD GAS TIDAL VOLUME 500 cc; ARTERIAL BLOOD GAS FIO2 55 %; ARTERIAL BLOOD GAS PCO2 22 mmHg (35-45); ARTERIAL BLOOD GAS PEEP 8 cmH2O; ARTERIAL BLOOD GAS PO2 74 mmHg (75-100); ARTERIAL BLOOD GAS VENT MODE AVAPS; ARTERIAL BLOOD GAS VENT RATE 14 /MIN; CARBOXYHEMOGLOBIN 1.2 % THgb (0.0-6.9); HCO3- 10.8 (22-28); HGB O2 SAT 95.2 g/dF (94-100); Methhemoglobin 0.6 % (1.4-1.5)
[2022-03-28 02:06] LABS: ABG SITE RIGHT RADIAL; ALLEN TEST OK? YES
[2022-03-28 02:09] LABS: Hematocrit 27.8 % (42-50); Hemoglobin 8.8 g/dL (12.5-18.0); Mean Cell Volume 86.1 fL (78-100); Mean Corpuscular Hemoglobin 27.2 pg (26-32); Mean Corpuscular Hgb Concent. 31.7 g/dL (32-36); Mean Platelet Volume 9.6 fL (7.5-11.0); Platelet Count 351 x10^3/uL (150-450); Red Blood Count 3.23 x10^6/uL (4.1-5.6); White Blood Count 18.4 x10^3/uL (4.0-10.5)
[2022-03-28] MEDS ORDERED: SODIUM BICARBONATE 50 MEQ/50 ML ABBOJECT IV ONE ×2 (02:14→08:20)
[2022-03-28 02:26] LABS: ALBUMIN 2.8 g/dL (3.5-5.0); ANION GAP 12.9 MEQ/L (5-15); BILIRUBIN,TOTAL 0.3 mg/dL (0.2-1.3); Calcium 7.9 mg/dL (8.4-10.2); Creatinine 1 2.1 mg/dL (0.66-1.25); EST GLOMERULAR FILTRATION RATE 32.4 ML/MIN; Potassium 3.7 mmol/L (3.5-5.1); Total Protein 6.1 g/dL (6.3-8.2)
[2022-03-28] MEDS: PROVENTIL 2.5 MG/3 ML NEB IH SCH ×3 (02:52→10:44)
[2022-03-28 03:25] LABS: ISTAT cTNI 0.06 ng/mL (0.00-0.03)
[2022-03-28] MEDS: solu-MEDROL 80 MG, Sterile H2O 10 ml 2 ML IV SCH ×2 (06:19)
[2022-03-28 07:54] LABS: A-aADO2 293; ABG HEMOGLOBIN 10.4; ABG POTASSIUM 3.4 (3.5-5.1); ABG SITE lr; ARTERIAL BLD GAS O2 SATURATION 96.6 % (95-100); ARTERIAL BLD GAS TIDAL VOLUME 500 cc; ARTERIAL BLOOD GAS BASE EXCESS -11.8 (-2.0-2.0); ARTERIAL BLOOD GAS FIO2 55 %; ARTERIAL BLOOD GAS PCO2 22 mmHg (35-45); ARTERIAL BLOOD GAS PO2 72 mmHg (75-100); ARTERIAL BLOOD GAS VENT MODE avaps; ARTERIAL BLOOD GAS VENT RATE 14 /MIN; ARTERIAL BLOOD GAS pH 7.35 (7.35-7.45); CARBOXYHEMOGLOBIN 1.3 % THgb (0.0-6.9); HCO3- 12.1 (22-28); Methhemoglobin 0.4 % (1.4-1.5)
[2022-03-28] MEDS: Sodium Chloride 0.9% 1000 ML 1,000 ML IV SCH (08:04)
--- NOTE | 2022-03-28 08:06 | CONS ---
CONSULT DATE: 03/27/2022 HISTORY: Lorenzo Youngblood is an 81-year-old male who has been admitted through the emergency room with complaints of shortness of breath. According to the patient's family, he has been getting progressively more short of breath for the past two weeks. The patient came to the emergency room and was noted to have abnormal chest x-ray as well as CT chest. He had labored respirations. Arterial blood gases showed metabolic acidosis likely from renal insufficiency. The patient was placed on BiPAP along with other supportive care of IV antibiotics, steroids as well as diuretics. At the time of my evaluation this evening, he appears a lot more comfortable. He remains on BiPAP with oxygen saturation of 98%. The patient was apparently seen by me a couple of years ago when he was at [facility] after undergoing a cystoscopy procedure. He was found to have bladder cancer which is now in remission, according to the family. PAST MEDICAL HISTORY: Positive for history of hypertension, prostatic enlargement, dyslipidemia, coronary artery disease, hypothyroidism and gout, PAST SURGICAL HISTORY: As above. PERSONAL AND SOCIAL HISTORY: He is a former smoker. MEDICATIONS: Home and current medications are reviewed. ALLERGIES: SULFA. SHRIMP. PHYSICAL EXAMINATION: This is an elderly male who appears mildly tachypneic, able to answer simple questions. VITAL SIGNS: Temperature 97.9F, heart rate 82, blood pressure 127/58 mmHg and saturating 98% on BiPAP. HEENT: Normocephalic. Oral exam limited. BiPAP mask is in place. NECK: Supple. CVS: First and second heart sounds are normal, regular, rhythmic. RESPIRATORY: Shows diminished breath sounds, bilateral rhonchi heard. ABDOMEN: Soft. EXTREMITIES: Trace edema is present. : The patient has refused placement of Oreilly catheter. LABORATORY DATA AND TESTS: White count 15.4, hemoglobin 11, hematocrit 34, PLT count 395,000. Sodium 137, potassium 4.1, chloride 113, bicarb 13, BUN 47, creatinine 2.45. GFR 27. ABG reviewed. Chest x-ray and CT chest reviewed as well. Lactic acid 2.3. Troponin I negative. Influenza A and B, respiratory syncytial virus as well as COVID tests were negative. ASSESSMENT: This is an 81-year-old male admitted with: 1) Acute hypoxic respiratory failure. 2) Metabolic acidosis appears to be likely from renal failure.3) Clinical bronchospasm suggestive of likely underlying obstructive airway disease. The patient had been a former smoker. 4) Bilateral patchy infiltrates, question inflammatory versus infection. White count mildly elevated although without obvious fever. Will treat with antibiotics currently on Rocephin and Zithromax. 5) Renal failure, question chronic. 6) Comorbidities listed above. RECOMMENDATIONS: 1) The patient appears to be improving clinically. 2) Continue noninvasive ventilation as long as tolerated. 3) Ativan dose will be increased to 2 mg every 4 hours PRN to improve compliance with BiPAP. 4) I agree with antibiotics. 5) I agree with steroids, bronchodilators. Cautious diuresis as needed. Follow up x-rays and labs. Monitor renal function closely. I will follow. Thank you for allowing me to participate in the care of your patient.
[2022-03-28] MEDS ORDERED: BUMEX 1 MG IV ONE (08:18)
--- NOTE | 2022-03-28 08:24 | XRAY ---
Indication: Pneumonia. Comparison: March 26, 2022 Portable chest demonstrates worsening moderate diffuse bilateral groundglass airspace disease again without consolidation/large effusion. Heart not enlarged again with incidental left hilar calcified node and right Port-A-Cath. No new cardiopulmonary abnormalities.
[2022-03-28] MEDS: PLAVIX Tablet PO SCH (09:16)
[2022-03-28] MEDS: NORVASC 5 MG PO SCH (09:16)
[2022-03-28] MEDS: Lopressor 50 MG PO SCH (09:16)
[2022-03-28] MEDS: Klor Con PO SCH (09:16)
[2022-03-28] MEDS: MOTRIN 400 MG PO SCH (09:16)
[2022-03-28] MEDS: Flomax 0.4 MG PO SCH (09:16)
[2022-03-28] MEDS: Singulair 10 MG PO SCH (09:17)
[2022-03-28] MEDS: SYNTHROID 75 MCG PO SCH (09:18)
[2022-03-28] MEDS: ZYLOPRIM 100 MG PO SCH (09:18)
[2022-03-28] MEDS ORDERED: MORPHINE SULFATE 4 MG INJ IV PRN (09:23)
[2022-03-28] MEDS ORDERED: FLUZONE HIGH-DOSE QUAD 2022-23 IM ONE (10:00)
[2022-03-28] MEDS ORDERED: Merrem 1 GM in Sodium Chloride 100ML MINI-BAG PLUS 100 ML IV SCH (10:00)
[2022-03-28] MEDS ORDERED: Quelicin Fliptop 200 MG/10 ML IV ONE (11:10)
[2022-03-28] MEDS ORDERED: VERSED 5 MG/5 ML IV ONE (11:10)
[2022-03-28] MEDS ORDERED: Versed 50 MG/ 10 Ml MDV*** 50 MG in Sodium Chloride 0.9% 250 ML 240 ML IV PRN (11:17)
[2022-03-28] MEDS ORDERED: FENTANYL 500 MCG/10 ML VIAL 1,500 MCG in Sodium Chloride 0.9% 150 ML 120 ML IV PRN (11:18)
--- NOTE | 2022-03-28 11:35 | XRAY ---
Indication: Tube placement. Comparison: Taken earlier in the day. Portable chest demonstrates new endotracheal tube tip in right mainstem bronchus. Recommend withdrawal at least 3 cm. New NG tube traverses chest with tip at GE junction and should be advanced at least 6 cm. Remaining chest again demonstrates diffuse bilateral groundglass airspace disease. New left base infiltrate/atelectasis. Heart not enlarged again with right Port-A-Cath.
[2022-03-28 11:44] VITALS: BP 108/50; PULSE 99; O2SAT 100
[2022-03-28] MEDS ORDERED: Zemuron 100 MG/10 ML 100 MG in Sodium Chloride 0.9% 90 ML IV PRN (11:49)
--- NOTE | 2022-03-28 12:52 | PCM.DS ---
Discharge Summary Date of Admission: 03/27/22 01:58 Admitting Physician: PATRICK OWUSU Consults: Consults on Case 03/27/22 06:00 Consult Pulmonology ROUTINE Primary Care Provider: SARAHI DREW Allergies Allergies shrimp Allergy (Verified 03/26/22 17:16) Sulfa (Sulfonamide Antibiotics) Allergy (Verified 03/26/22 17:16) Hospital Summary - Hospital Course Hospital Course: Pt is an 81 yo male pt with HTN, HLD, hypothyroidism, and hx bladder ca who came in to ER with SOB. He was dx with bilateral PNA and hypoxemia, started on O2 per NC and placed on rocephin and zithromax with IV steroid. He could not maintain O2 and was placed on hi flow. Yesterday he started on BiPap; had ABG with low CO2, lo HCO3 and low PaO2. He stayed on bipap overnight; had a code rapid at one point and had an amp of bicarbonate. This morning his ABG was not much improved. Was given another amp of bicarb and lasix; Dr. Aragon, pulmonology consulted (thank you) and found CXR to be suspicious for some pulmonary edema as well. Pt has chronic renal dx, stage 4, and eGFR today 32.4. WBC elevated initially to 15 - were 12 yesterday, adn 18.4 this morning. His hgb 11 on admission and 8.8 this morning (was 8.3 yesterday). This morning pt denied pain to me. Was on bipap. He has recently been intubated. I did speak with Dr. Aly in [place] and she will accept the patient in transfer, thank you. - Vitals & Intake/Output Vital Signs: Vital Signs Temperature 97 F 03/28/22 09:56 Pulse Rate 99 H 03/28/22 11:42 Respiratory Rate 34 H 03/28/22 11:42 Blood Pressure 108/50 03/28/22 11:42 O2 Sat by Pulse Oximetry 100 03/28/22 11:42 Intake & Output: Intake & Output 03/26/22 03/27/22 03/28/22 03/29/22 11:59 11:59 11:59 11:59 Intake Total 2858 3145 Output Total 800 2740 Balance 2057 405 Weight 75.2 kg 78.1 kg - Lab Result Diagrams: 03/28/22 02:06 03/28/22 02:06 Lab Results-Last 24 Hrs: Lab Results-Last 24 Hours 03/27/22 03/27/22 03/28/22 Range/Units 12:35 16:11 01:50 WBC (4.0-10.5) x10^3/uL RBC (4.1-5.6) x10^6/uL Hgb (12.5-18.0) g/dL Hct (42-50) % MCV (78-100) fL MCH (26-32) pg MCHC (32-36) g/dL RDW (11.5-14.0) % Plt Count (150-450) x10^3/uL MPV (7.5-11.0) fL Puncture Site RIGHT RADIAL RIGHT RADIAL pCO2 20 L* 22 L (35-45) mmHg pO2 99 74 L (75-100) mmHg Base Excess -12.9 L -14.0 L (-2.0-2.0) O2 Saturation 97.2 95.2 (94-100) g/dF ABG pH 7.35 7.30 L (7.35-7.45) ABG HCO3 11.0 L* 10.8 L* (22-28) ABG O2 Sat (Measured) 99.0 96.9 (95-100) % Jon Test YES YES A-a Gradient 197 291 a/A Ratio 0.33 0.20 Hemoglobin 9.7 9.2 Carboxyhemoglobin 1.1 1.2 (0.0-6.9) % THgb Methemoglobin 0.7 L 0.6 L (1.4-1.5) % Potassium 3.9 3.7 (3.5-5.1) Temperature 37.0 37.0 C POC O2 Flow Rate 45 55 % Vent Mode BiPAP AVAPS Vent Rate 14 /MIN Tidal Volume 500 500 cc PEEP 8.0 8 cmH2O Sodium (137-145) mmol/L Chloride (98-107) mmol/L Carbon Dioxide (22-30) mmol/L Anion Gap (5-15) MEQ/L BUN (9-20) mg/dL Creatinine (0.66-1.25) mg/dL Estimated GFR ML/MIN Glucose (74-106) mg/dL Calcium (8.4-10.2) mg/dL Total Bilirubin (0.2-1.3) mg/dL AST (17-59) U/L ALT (0-50) U/L Alkaline Phosphatase (38-126) U/L Troponin (0.00-0.03) ng/mL Troponin I Serum Total Protein (6.3-8.2) g/dL Albumin (3.5-5.0) g/dL Urine Color Yellow (Yellow) Urine Appearance Clear (Clear) Urine pH 6.0 (4.6-8.0) Ur Specific [place] 1.015 (1.005-1.030) Urine Protein 300 A (Negative) Urine Glucose (UA) Negative (Negative) mg/dL Urine Ketones Negative (Negative) Urine Blood Small A (Negative) Urine Nitrite Negative (Negative) Urine Bilirubin Negative (Negative) Urine Urobilinogen 0.2 (0.2) mg/dL Ur Leukocyte Esterase Negative (Negative) U Hyaline Cast (Auto) 3-5 A (0-2) /LPF Urine Microscopic RBC 11-20 A (0-5) /HPF Urine Microscopic WBC 3-5 (0-5) /HPF Ur Epithelial Cells None Seen (None Seen) /HPF Urine Bacteria None Seen (None Seen) /HPF Urine Culture Reflexed YES (NO) 03/28/22 03/28/22 03/28/22 Range/Units 02:06 02:06 07:45 WBC 18.4 H (4.0-10.5) x10^3/uL RBC 3.23 L (4.1-5.6) x10^6/uL Hgb 8.8 L (12.5-18.0) g/dL Hct 27.8 L (42-50) % MCV 86.1 (78-100) fL MCH 27.2 (26-32) pg MCHC 31.7 L (32-36) g/dL RDW 16.0 H (11.5-14.0) % Plt Count 351 (150-450) x10^3/uL MPV 9.6 (7.5-11.0) fL Puncture Site lr pCO2 22 L (35-45) mmHg pO2 72 L (75-100) mmHg Base Excess -11.8 L (-2.0-2.0) O2 Saturation 95.0 (94-100) g/dF ABG pH 7.35 (7.35-7.45) ABG HCO3 12.1 L* (22-28) ABG O2 Sat (Measured) 96.6 (95-100) % Jon Test na A-a Gradient 293 a/A Ratio 0.20 Hemoglobin 10.4 Carboxyhemoglobin 1.3 (0.0-6.9) % THgb Methemoglobin 0.4 L (1.4-1.5) % Potassium 3.7 3.4 L (3.5-5.1) Temperature 37.0 C POC O2 Flow Rate 55 % Vent Mode avaps Vent Rate 14 /MIN Tidal Volume 500 cc PEEP 8.0 cmH2O Sodium 141 (137-145) mmol/L Chloride 120 H (98-107) mmol/L Carbon Dioxide 12 L* (22-30) mmol/L Anion Gap 12.9 (5-15) MEQ/L BUN 46 H (9-20) mg/dL Creatinine 2.10 H (0.66-1.25) mg/dL Estimated GFR 32.4 ML/MIN Glucose 163 H (74-106) mg/dL Calcium 7.9 L (8.4-10.2) mg/dL Total Bilirubin 0.30 (0.2-1.3) mg/dL AST 55 (17-59) U/L ALT 40 (0-50) U/L Alkaline Phosphatase 175 H (38-126) U/L Troponin 0.06 H (0.00-0.03) ng/mL Troponin I Cancelled Serum Total Protein 6.1 L (6.3-8.2) g/dL Albumin 2.8 L (3.5-5.0) g/dL Urine Color (Yellow) Urine Appearance (Clear) Urine pH (4.6-8.0) Ur Specific [place] (1.005-1.030) Urine Protein (Negative) Urine Glucose (UA) (Negative) mg/dL Urine Ketones (Negative) Urine Blood (Negative) Urine Nitrite (Negative) Urine Bilirubin (Negative) Urine Urobilinogen (0.2) mg/dL Ur Leukocyte Esterase (Negative) U Hyaline Cast (Auto) (0-2) /LPF Urine Microscopic RBC (0-5) /HPF Urine Microscopic WBC (0-5) /HPF Ur Epithelial Cells (None Seen) /HPF Urine Bacteria (None Seen) /HPF Urine Culture Reflexed (NO) Micro Results-Entire Visit: Microbiology 03/26/22 12:44 Blood Culture - Preliminary Blood NO GROWTH TO DATE 03/26/22 12:40 Blood Culture - Preliminary Blood NO GROWTH TO DATE - Radiology Exams Ordered Rad Exams-Entire Visit: Radiology Procedures Category Date Time Status CHEST 1 VIEW (PORTABLE) Stat Exams 03/26/22 12:17 Completed CHEST WITHOUT CONTRAST [CT] Stat Exams 03/27/22 10:31 Completed Portable Chest [CHEST 1 VIEW (PORTABLE)] Routine Exams 03/28/22 11:12 Complet ed Portable Chest [CHEST 1 VIEW (PORTABLE)] Stat Exams 03/28/22 07:21 Completed - Procedures and Test Procedures and Tests throughout Hospitalization: Therapy Orders & Screens 03/26/22 12:44 Respiratory Therapy Assessment DAILY Comment: 03/26/22 16:13 EKG REPEAT IN AM Comment: Oxygen Nasal Cannula 2 lpm Comment: Respiratory Therapy Consult ROUTINE Comment: Reason For Exam: 03/27/22 02:04 Oxygen High Flow per RT 50% Comment: Diagnosis: Hypoxia, Bilateral pneumonia,Leukocytosis. 03/27/22 11:20 BiPap/CPAP ROUTINE Comment: Diagnosis: CAIT PNEUMONIA, HYPOXIA 03/28/22 12:39 Intubate Patient STAT Comment: Diagnosis: CAIT PNEUMONIA, HYPOXIA Ventilator Management Q4H Comment: Diagnosis: CAIT PNEUMONIA, HYPOXIA Discharge Exam General Appearance: mild distress (uncomfortable on BiPAP) Neurologic Exam: alert, cooperative, other Eye Exam: eyes nml inspection Ears, Nose, Throat Exam: moist mucous membranes Neck Exam: normal inspection Respiratory Exam: diminished breath sounds (good air exchange), No crackles/rales, No rhonchi, No wheezing Cardiovascular Exam: tachycardia (reg rhythm), No murmur Gastrointestinal/Abdomen Exam: soft, normal bowel sounds, No tenderness, No d istention, No mass, No guarding, No rebound Extremity Exam: normal inspection, No pedal edema, No swelling Skin Exam: normal color, warm, dry, No rash Final Diagnosis/Problem List - Final Discharge Diagnosis/Problem (1) Respiratory failure Status: Acute Assessment & Plan: Actually intubated prior to transfer. Needs higher level of care with specialists available. Code(s): J96.90 - RESPIRATORY FAILURE, UNSP, UNSP W HYPOXIA OR HYPERCAPNIA (2) Bilateral pneumonia Current Visit: Yes Status: Acute Assessment & Plan: Antibiotic changed from rocephin and zithromax today to meropenem. Code(s): J18.9 - PNEUMONIA, UNSPECIFIED ORGANISM (3) Leukocytosis Current Visit: Yes Status: Acute Code(s): D72.829 - ELEVATED WHITE BLOOD CELL COUNT, UNSPECIFIED (4) Metabolic acidemia Status: Acute Assessment & Plan: has received 2 amps bicarb. could be related to renal disease or infection/sepsis. Blood and urine cultures are pending. Code(s): E87.20 - ACIDOSIS, UNSPECIFIED (5) Renal insufficiency Current Visit: No Status: Chronic Assessment & Plan: In 02/2019, eGFR 39.0. In Mar 2019, eGFR 45.0, and in 07/18/21, was 32.3. - Discharge Disposition: DC TO OTHER HOSP Condition: Fair Prescriptions: No Action Simvastatin 20 mg PO HS Clopidogrel Bisulfate [PLAVIX Tablet] 75 mg PO DAILY Aspirin 81 tab PO HS Levothyroxine Sodium 75 Mcg [Synthroid 75 Mcg] 75 mcg PO DAILY Tamsulosin HCl 0.4 mg [Flomax 0.4 MG] 0.4 mg PO BID Allopurinol 100 mg [Zyloprim 100 mg] 100 mg PO BID Metoprolol Tartrate 50 mg [Lopressor 50 MG] 50 mg PO BID Ibuprofen 200 mg [Motrin 200 mg] 400 mg PO BID Montelukast Sodium 10 mg [Singulair 10 MG] 10 mg PO DAILY Potassium Chloride Tab* [Klor Con] 20 meq PO DAILY Finasteride 5 mg [Proscar 5 MG] 5 mg PO HS Amlodipine Besylate 10 mg PO DAILY Follow up with: SARAHI DREW [Primary Care Provider] -
--- NOTE | 2022-03-29 08:42 | PROG NOTE ---
DATE: 03/28/2022 Events noted. HISTORY: The patient remains BiPAP dependent, requiring frequent doses of anxiolytic medications overnight. This morning he was progressively more tachypneic requiring intubation. A patient transfer was requested and a bed was available and eventually he is being transferred. Post-intubation I evaluated the patient. He appeared comfortable with good air movement and improvement in clinical bronchospasm. PHYSICAL EXAMINATION: He has remained afebrile. Heart rate 90, blood pressure 122/70. Saturating 100%. HEENT: Normocephalic. ET tube is in place. NECK: Supple. CVS: First and second heart sounds are normal, regular, rhythmic. RESPIRATORY: Shows diminished breath sounds. ABDOMEN: Soft. EXTREMITIES: Trace edema is noted. LABORATORY DATA AND TESTS: Labs reviewed. ASSESSMENT: This is an 81-year-old male admitted with: 1) Acute hypoxic respiratory failure. 2) Persistent acidemia likely metabolic in nature. 3) Prior history of bladder cancer. 4) Anion gap, question sepsis. Initial lactic acid was negative. 5) Chronic renal insufficiency. RECOMMENDATIONS: The patient has been intubated and would benefit from nephrology consultation for which he is being transferred, continue other supportive care in the meantime. Prognosis remains guarded.
== END 2022-03-28 12:38 | DRG 189 ==
LOC: ED 11:53 → MED SURG 16:11 → OBSVTOIN 03-27 01:58 → ICU 03-27 10:31
PROVIDERS: ADMIT Family Medicine; ATTEND Family Medicine
DX: J96.90 Respiratory failure, unspecified, unspecified whether with hypoxia or hypercapnia (principal); J18.9 Pneumonia, unspecified organism; E87.20 Acidosis, unspecified; N18.4 Chronic kidney disease, stage 4 (severe); D72.829 Elevated white blood cell count, unspecified; N28.9 Disorder of kidney and ureter, unspecified; I12.9 Hypertensive chronic kidney disease with stage 1 through stage 4 chronic kidney disease, or unspecified chronic kidney disease; E78.5 Hyperlipidemia, unspecified; E03.9 Hypothyroidism, unspecified; Z79.899 Other long term (current) drug therapy; Z85.51 Personal history of malignant neoplasm of bladder; Z20.828 Contact with and (suspected) exposure to other viral communicable diseases; Z79.01 Long term (current) use of anticoagulants
CPT/HCPCS: 0241U; 31500; 36000; 36415; 36600; 71045; 71250; 80053; 81001; 82375; 82803; 83605; 83735; 83880; 84484; 85025; 85027; 87040; 87077; 87086; 87186; 93005; 93041; 93268; 94002; 94003; 94640; 94760; 94762; 96365; 96374; 99285; J0330; J0456; J0696; J2060; J2250; J2270; J2930; J3010; J7609; A9270-GY; G0378